=== PATIENT | female | born 1945 | race Caucasian/White ===

== ENCOUNTER 2024-02-29 14:10 | Inpatient (IN) | payer MEDICARE, OTHER, SELFPAY ==
[2024-02-29] VITALS (21 sets, daily range): BP systolic 97–153; BP diastolic 40–90; PULSE 62–89; RESP 11–47; TEMP 36.2–36.6; O2SAT 90–100; BMI 32.2
--- NOTE | ~2024-02-29 | CT_ITS ---
EXAMINATION: CT brain wo con DATE: 03/01/2024 10:33 INDICATION: Uneven pupil examination TECHNIQUE: Computed tomography (CT) of the head was performed without intravenous contrast. The dose- length product was 1059.33 mGy-cm. Automated exposure control and iterative reconstruction technique were employed. COMPARISON: None FINDINGS: Generalized atrophy. There are scattered moderate periventricular and subcortical white mat ter changes, most likely related to small vessel ischemic disease (microangiopathy). No ventriculomeg damion or midline shift. Basilar cisterns are patent. No acute infarction, hemorrhage, mass or mass effe ct. Paranasal sinuses and mastoids are pneumatized. No depressed skull fractures. IMPRESSION: 1. No acute intracranial abnormality. 2: Chronic age-related findings. Reviewed, dictated and finalized at location B.
--- NOTE | ~2024-02-29 | XR_ITS ---
EXAMINATION: XR barium swallow modified DATE: 03/04/2024 12:34 INDICATION: Dysphagia. TECHNIQUE: The patient was given barium-containing material of multiple consistencies to swallow by t ana speech pathologist while I performed fluoroscopy. Fluoroscopy exposure time was 1.3 minutes. The n umber of fluoroscopy images saved to the PACS was 1. Dose-area product was 1.208 Gy-cm^2. FINDINGS: There is reduced laryngeal elevation. There is laryngeal penetration with uncontrolled thin liquids t hat persists with head flexion. IMPRESSION: 1. Laryngeal penetration. 2. Please refer to the speech therapy report for recommendations. Reviewed, dictated and finalized at location A.
--- NOTE | ~2024-02-29 | CT_ITS ---
EXAMINATION: CTA chest PE protocol DATE: 02/29/2024 17:15 INDICATION: Tachycardia. Hypoxia. Chronic obstructive pulmonary disease. TECHNIQUE: Computed tomography angiography (CTA) of the chest was performed with 100 mL Omnipaque-350 intravenous contrast timed to evaluate the pulmonary arteries. Coronal maximum intensity projection 3D-reconstructions were created by the technologist. Automated exposure control and iterative reconst ruction technique were employed. The dose-length product was 813.02 mGy-cm. COMPARISON: None. FINDINGS: There is mild emphysema. There is diffuse septal thickening in the lungs. There is atelecta sis in the lungs with a dependent predominance. There are small pleural effusions. Calcified left tyrone g nodules and calcified left hilar and mediastinal lymph nodes are consistent with old granulomatous disease. Cardiomegaly is noted. There are coronary artery calcifications. No pericardial effusion. Th ere is no pulmonary embolus. There is mild mediastinal and bilateral hilar lymphadenopathy, likely re active. There is a patent arterial graft in right lateral chest wall. There is a chronic burst fractu re of T7 with focal kyphosis. IMPRESSION: 1. No pulmonary embolus. 2. Moderate pulmonary edema. 3. Small pleural effusions. 4. Mild mediastinal and hilar lymphadenopathy, likely reactive. Reviewed, dictated and finalized at location E.
--- NOTE | ~2024-02-29 | XR_ITS ---
EXAMINATION: XR chest 1V portable DATE: 03/05/2024 08:41 INDICATION: Respiratory failure. TECHNIQUE: A single frontal view of the chest was obtained. COMPARISON: Chest single view 03/03/2024, chest CT 02/29/2024 FINDINGS: There is a diffuse interstitial pattern in the lungs. There is a small right pleural effusi on. There are airspace opacities at the lung bases. Calcified pulmonary nodules and calcified hilar m ediastinal lymph nodes are consistent with old granulomatous disease. Cardiomegaly is noted. Surgical clips overlie right chest. IMPRESSION: 1. Mild pulmonary edema. 2. Small right pleural effusion. 3. Airspace opacities at the lung bases, likely atelectasis. 4. Cardiomegaly. Reviewed, dictated and finalized at location A.
--- NOTE | ~2024-02-29 | XR_ITS ---
EXAMINATION: XR chest 1V portable DATE: 03/03/2024 09:30 INDICATION: Chronic obstructive pulmonary disease. Fluid overload. TECHNIQUE: A single frontal view of the chest was obtained. COMPARISON: Chest CT 02/29/2024 FINDINGS: There is a diffuse interstitial pattern in the lungs, consistent with pulmonary edema. Ther e are small pleural effusions. There are airspace opacities at the lung bases, likely atelectasis. No pneumothorax. Cardiomegaly is noted. Calcified left hilar mediastinal lymph nodes are consistent wit h old granulomatous disease. There are surgical clips overlying the right shoulder. IMPRESSION: 1. Mild pulmonary edema. 2. Small pleural effusions. 3. Cardiomegaly. Reviewed, dictated and finalized at location A.
--- NOTE | 2024-02-29 14:56 | ECG_ITS ---
[facility] [address] Test Date: 2024-02-29 Pat Name: Dinorah Jacobo Department: Room: Gender: F Online Producer: : 1945 Requested By: Jarrod James Order Number: [id number] Julio MD: Ivonne Magallon M.D. Measurements Intervals [place] Rate: 66 P: 46 OH: 153 QRS: 27 QRSD: 82 T: 2 QT: 400 QTc: 422 Interpretive Statements SINUS RHYTHM NONSPECIFIC T-WAVE ABNORMALITY No previous ECG available for comparison Electronically Signed On 03-01-2024 12:04:37 CDT by Ivonne Magallon M.D.
[2024-02-29 15:29] LABS: Alveolar/Arterial O2 Gradient 335.8 mmHg; Base Excess ABG 15.4 mEq/l (+/-2.0); Carboxyhemoglobin 0.7 % THb (0-2.0); Fractional Inspired Oxygen 68 %; HCO3 ABG 44.6 mEq/l (22.0-26.0); Methemoglobin ABG 0.1 %THb (0-1.5); Oxygen Content ABG 12.6 %vol (16.0-22.0); PO2 ABG 52.7 mmHg (80.0-100.0); PO2 FiO2 Ratio Arterial Blood 0.78 %; Reduced Hemoglobin 12.5 %THb (0-5.0); Total Hemoglobin 10.3 g/dL (12.0-18.0); pH ABG 7.317 (7.350-7.450)
[2024-02-29 15:31] LABS: Device SIMPLE MASK; Modified Allen's Test Pass; Oxyhemoglobin 86.7 % THb (90.0-100.0); PCO2 ABG 89.2 mmHg (35.0-45.0); Site Drawn LEFT RADIAL
[2024-02-29] MEDS: ALBUTEROL SULFATE NEB 2.5 MG/3 ML INH INHALATION ×2 (15:36→19:52)
[2024-02-29] MEDS: methylPREDNISolone SOD SUCC 125 MG VIAL IV PUSH (15:37)
[2024-02-29 16:24] LABS: Basophils Absolute Auto 0.1 K/mm3 (0.0-0.1); Basophils Percent Auto 0.5 % (0.2-1.2); Eosinophils Absolute Auto 0.1 K/mm3 (0-0.3); Eosinophils Percent Auto 0.8 % (0-4.4); Hemoglobin 9.2 g/dL (12.0-15.0); Lymphocytes Absolute Auto 1.59 K/mm3 (0.9-3.2); Lymphocytes Percent Auto 16.5 % (18.3-44.2); Mean Corpuscular HGB Conc 27.9 g/dl (32-36); Mean Corpuscular Hemoglobin 30.3 pg (26-34); Mean Corpuscular Volume 108.6 fl (80-100); Mean Platelet Volume 10.6 fl (7.4-10.4); Monocytes Absolute Auto 0.5 K/mm3 (0.1-0.6); Monocytes Percent Auto 5.3 % (2.6-8.5); Neutrophils Absolute Auto 7.3 K/mm3 (1.3-6.7); Neutrophils Percent Auto 75.9 % (45.5-73.1); Platelet Count Result 222 k/mm3 (150-375); Red Blood Count 3.04 M/mm3 (4.2-5.4); Red Cell Distribution Width 14.1 % (11.5-14.5); White Blood Count 9.6 K/mm3 (4.5-10.0)
--- NOTE | 2024-02-29 16:26 | ED.GENADULT ---
HPI - General Adult General Chief complaint: Shortness of Breath/Dyspnea Stated complaint: SOB On Home O2 Time Seen by Provider: 02/29/24 15:03 History of Present Illness HPI narrative: 79-year-old female with history of COPD that is on 2 L of oxygen by nasal cannula at home and is still a smoker presents emergency department for evaluation of worsening shortness of breath and increased O2 requirement over the course of the last few months. 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 He states she has had increased oxygen requirement over the last few months but over the last few weeks and days it has increased even more. She states that she had been bumped up to 5-8 L and then over the last few days he did 10 L by face mask on 5 L by nasal cannula. Patient was still having oxygen saturations in the mid 80s so he called EMS. Related Data Allergies Allergy/AdvReac Type Severity Reaction Status Date / Time naproxen Allergy Unknown Verified 03/29/11 12:19 Sulfa (Sulfonamide Allergy Unknown Verified 01/16/12 12:02 Antibiotics) sulfanilamide Allergy Unknown Verified 03/29/11 12:11 Review of Systems Review of Systems: All systems reviewed & are unremarkable except as noted in HPI and below [facility] Family History Family History (Updated 01/04/17 @ 23:56 by DOCTOR UNKNOWN) Father Family history of coronary artery disease, Onset Age: 76 Patient's father is Sibling Family history of malignant neoplasm of breast in first degree relative, Onset Age: 52 Patient's sister is Social History Social History Second hand tobacco smoke exposure: No Alcohol intake: never Exam Narrative: APPEARANCE: Well appearing, no pain, no distress, well-nourished. HEAD: normocephalic, atraumatic. EYES: PERRLA/EOMI, conjunctivae clear. NOSE: Normal no drainage EARS:TMS clear with good light reflex. THROAT: Pharynx clear, no exudate. NECK: Supple. No adenopathy, no masses. RESPIRATORY: Decreased air movement bilaterally CARDIOVASCULAR: Regular rate and rhythm without murmurs rubs or gallops. ABDOMINAL: Soft, nontender, nondistended, normal bowel sounds MUSCULOSKELETAL: Moves all extremities. Strength/ROM intact, No edema, No calf tenderness. NEURO: Alert. Cranial nerves II through XII intact. Grossly intact Course Vital Signs Vital signs: Vital Signs Temperature 97.8 F 02/29/24 14:20 Pulse Rate 66 02/29/24 14:20 Respiratory Rate 16 02/29/24 14:20 Blood Pressure 153/63 H 02/29/24 14:20 Pulse Oximetry 100 02/29/24 14:20 Oxygen Delivery Room Air 02/29/24 14:20 Oxygen Flow Rate 15 02/29/24 14:20 Temperature 97.8 F 02/29/24 14:20 Pulse Rate 84 02/29/24 18:31 Respiratory Rate 20 02/29/24 18:31 Blood Pressure 127/54 L 02/29/24 18:31 Pulse Oximetry 97 02/29/24 18:31 Oxygen Delivery BiPAP 02/29/24 16:58 Oxygen Flow Rate 15 02/29/24 14:20 Medical Decision Making MDM Narrative Medical decision making narrative: 79-year-old female presenting emergency department for evaluation of worsening shortness of breath. Patient had a face mask at 15 L and was still saturating at 88%. Patient was transitioned to BiPAP and is tolerating this well. ABG taken just prior to placement of the face mask shows a pH of 7.37 but a pCO2 of 89.2 and a PO2 of 52.7. Patient was treated with Solu-Medrol and nebulized albuterol. Patient had a CT ordered to evaluate for pulmonary embolism and CTA showed no evidence of PE but did show some pulmonary edema. Patient with afebrile with no leukocytosis and hemoglobin of 9.2, patient does have an elevated BNP almost 4000. Patient was ordered a dose of IV Lasix. Case was discussed with the hospitalist and patient was accepted for admission to the IMU. Prior to going to the floor the patient's had to step out and patient became increasingly agitated. Patient was svetlana
[2024-02-29 16:40] LABS: Alanine Aminotransferase 15 U/L (6-35); Albumin Level 3.9 g/dL (3.5-5.1); Alkaline Phosphatase 143 U/L (38-126); Aspartate Amino Transferase 22 U/L (14-36); Bilirubin,Total 0.8 mg/dL (0.2-1.3); Blood Urea Nitrogen 12 mg/dL (7-17); Calcium 8.3 mg/dL (8.4-10.2); Carbon Dioxide > 40 mmol/L (22-30); Chloride 94 mmol/L (98-107); Estimated CRCL calculation 57 ml/min; Estimated Glomerular Filt Rate > 60; Glucose 118 mg/dL (65-110); Sodium 140 mmol/L (137-145)
[2024-02-29 18:08] LABS: NT Pro B Type Natriuretic Pept 3980 pg/mL (19.9-100)
[2024-02-29] MEDS: HALOPERIDOL LACTATE 5 MG/ML VIAL IM (19:03)
--- NOTE | 2024-02-29 19:05 | PC.NURSE ---
WOKE PT UP TO CHECK ORIENTATION STATUS. PT BECAME AGITATED, SWUNG KLEENEX BOX AT US. SAYING SHE WANTS TO LEAVE. MESSAGE LEFT WITH . AWAITING CALL BACK. DR GONZALES TO BEDSIDE. HALDOL 5MG GIVEN PER AMOL GONZALES. ARRIVED BACK TO BEDSIDE AND STATES THAT HE THINKS SHE HAS SUNDOWNERS . EVERY NIGHT SHE BECOMES CONFUSED AND RIPS OFF HER OXYGEN AND CLOTHING.
[2024-02-29 19:35] LABS: Alveolar/Arterial O2 Gradient 213.7 mmHg; Base Excess ABG 14.8 mEq/l (+/-2.0); Carboxyhemoglobin 0.9 % THb (0-2.0); Fractional Inspired Oxygen 50 %; HCO3 ABG 42.8 mEq/l (22.0-26.0); Methemoglobin ABG 0.1 %THb (0-1.5); Oxygen Content ABG 13.1 %vol (16.0-22.0); Oxyhemoglobin 89.5 % THb (90.0-100.0); PO2 ABG 57.5 mmHg (80.0-100.0); PO2 FiO2 Ratio Arterial Blood 1.15 %; Reduced Hemoglobin 9.5 %THb (0-5.0); Total Hemoglobin 10.4 g/dL (12.0-18.0)
[2024-02-29 19:37] LABS: PCO2 ABG 75.8 mmHg (35.0-45.0)
[2024-02-29 19:38] LABS: Device BIPAP; Expiratory Pressure 7 cmH2O; Inspiratory Pressure 14 cmH2O; Modified Allen's Test Pass; Oxygen Saturation ABG 87.6 % (95.0-100.0); Site Drawn RIGHT RADIAL
--- NOTE | 2024-02-29 19:41 | PM.IMHP ---
H&P: HPI History of Present Illness Date/Time: 02/29/24 20:00 Chief Complaint: Shortness of breath. Narrative: This is a 79-year-old female smoker with chronic respiratory failure on 2 L nasal cannula, chronic obstructive pulmonary disease, peripheral vascular disease, and hypertension who presented to the emergency department via EMS from home for evaluation of shortness of breath. She is somnolent on BiPAP after having received haloperidol due to agitation (pulling at the BiPAP mask and swinging at staff) and her provides the following history. She has never been seen at this facility before. 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 The last several days she has been on anywhere from 5 to 8 L but today her SpO2 remained in the 80s despite an additional 10 L via face mask. There are no reports of fever, cough, vomiting, or diarrhea. The patient denies headache, chest pain, pleuritic pain, nausea, and calf pain at this time. In the ED: ABG done immediately on arrival showed a pH of 7.317, pCO2 89.2, PO2 52.7, bicarb 44.6. She was started on BiPAP with improvement in her PO2 on repeat blood gas. The remainder of her vital signs have been stable. Labs were significant for WBC count of 9.6, hemoglobin 9.2, hematocrit 33.0%, MCV 108.6, platelet 222, proBNP 3980. Chest CTA was negative for pulmonary embolism but did show small pleural effusions and moderate pulmonary edema. She received 125 mg IV methylprednisolone, albuterol nebulizer, and 5 mg IM haloperidol for agitation and she is being admitted in this setting for further treatment. Review of Systems Review of Systems: She is somewhat the time my evaluation but does nod and shake her head appropriately when asked questions. She cannot really talk through the BiPAP mask however and review of systems is limited. She denies chest pain in feelings of shortness of breath at this time. She also denies headache, nausea, vomiting, and diarrhea. reports that she tends to sundown and suspect she has underlying but undiagnosed dementia. [facility] Past Medical History Medical History (Updated 02/29/24 @ 22:54 by Aidee Newberry PA-C) Chronic obstructive pulmonary disease Chronic pain syndrome Chronic respiratory failure with hypoxia, on home O2 therapy Hypertension Peripheral arterial disease Surgical History Surgical History (Updated 02/29/24 @ 22:40 by Aidee Newberry PA-C) History of syvvj-hnsrz-dudhmbl bypass History of cataract extraction Family History Family History Father Family history of coronary artery disease, Onset Age: 76 Patient's father is Sibling Family history of malignant neoplasm of breast in first degree relative, Onset Age: 52 Patient's sister is Social History Social History (Updated 02/29/24 @ 22:40 by Aidee Newberry PA-C) Social History: Surrogate medical decision maker: Erasmo Jacobo, spouse. Code status: Full code. Smoking packs per day: 1 Smoking cigarettes per day: 20.0 Years smoked: 60 Smoking pack-years: 60.00 Smoking status: Current every day smoker Second hand tobacco smoke exposure: No Alcohol intake: never Additional living arrangements comments: Lives with spouse in [place]. Spiritual care concerns: No Meds Home Medications and Allergies Home Medications Medication Instructions Recorded Confirmed Type atenolol 25 mg tablet 25 mg PO DAILY 02/29/24 02/29/24 History celecoxib 100 mg capsule (Celebrex) 100 mg PO BID PRN Pain 02/29/24 02/29/24 History clonidine HCl 0.2 mg tablet 0.2 mg PO DAILY 02/29/24 02/29/24 History clopidogrel 75 mg tablet 75 mg PO DAILY 02/29/24 02/29/24 History lisinopril 20 mg tablet 20 mg PO BID 02/29/24 02/29/24 Hi
--- NOTE | 2024-02-29 20:15 | PC.NURSE ---
This patient, Dinorah Jacobo, was admitted to IMU Room 200-01. Patient/family oriented to hospital policies and general routines including ID bracelet, bed and alarms, visiting hours, pain management, procedures, bathroom and other care routines, personal items, smoking policy, room service/diet, and visiting hours. Information on how to activate the Rapid Response Team has been discussed. Patient/Family are encouraged to report perceived risks to care and to ask questions if they do not understand what they are told or what they should do.
[2024-03-01] VITALS (39 sets, daily range): BP systolic 148–196; BP diastolic 50–92; PULSE 66–107; RESP 15–29; TEMP 36.6–37.1; O2SAT 88–99
[2024-03-01] MEDS: FUROSEMIDE INJ 40 MG/4 ML VIAL 20 MG IV PUSH (00:21)
[2024-03-01] MEDS: methylPREDNISolone SOD SUCC 125 MG VIAL 60 MG IV PUSH ×4 (00:21→18:22)
[2024-03-01] MEDS: IPRATROPIUM BR 0.02% INH SOLN 0.5 MG/2.5 ML VIAL INHALATION ×2 (02:22→07:29)
[2024-03-01] MEDS: ALBUTEROL SULFATE NEB 2.5 MG/3 ML INH INHALATION ×2 (02:22→07:28)
[2024-03-01 04:42] LABS: Hemoglobin 9.2 g/dL (12.0-15.0); Mean Corpuscular HGB Conc 27.9 g/dl (32-36); Mean Corpuscular Hemoglobin 29.7 pg (26-34); Mean Corpuscular Volume 106.5 fl (80-100); Mean Platelet Volume 11.2 fl (7.4-10.4); Platelet Count Result 211 k/mm3 (150-375)
[2024-03-01 05:05] LABS: Iron 68 ug/dL (37-170)
[2024-03-01 05:07] LABS: Blood Urea Nitrogen 14 mg/dL (7-17); Calcium 8.4 mg/dL (8.4-10.2); Carbon Dioxide > 40 mmol/L (22-30); Chloride 92 mmol/L (98-107); Estimated CRCL calculation 57 ml/min; Estimated Glomerular Filt Rate > 60; Glucose 205 mg/dL (65-110); Magnesium 1.6 mg/dL (1.6-2.3); Potassium 3.7 mmol/L (3.4-5.0); Sodium 140 mmol/L (137-145)
[2024-03-01 05:15] LABS: Percent Iron Saturation 24 % (20-50)
[2024-03-01 05:37] LABS: Thyroid Stimulating Hormone Reflex 0.351 uIU/mL (0.465-4.68)
[2024-03-01] MEDS: WATER FOR IRRIGATION, STERILE 1,000 ML BOTTLE 1000 ML (06:35)
[2024-03-01 06:46] LABS: Free T4 Free Thyroxine Reflex 1.05 ng/dL (0.78-2.19)
[2024-03-01 07:42] LABS: Alveolar/Arterial O2 Gradient 305.6 mmHg; Device NON-INVASIVE VENT; Fractional Inspired Oxygen 60 %; HCO3 ABG 39.5 mEq/l (22.0-26.0); Modified Allen's Test Pass; Oxygen Content ABG 13.1 %vol (16.0-22.0); Oxygen Saturation ABG 92.4 % (95.0-100.0); Oxyhemoglobin 92.5 % THb (90.0-100.0); PCO2 ABG 55.3 mmHg (35.0-45.0); PO2 ABG 61.4 mmHg (80.0-100.0); PO2 FiO2 Ratio Arterial Blood 1.02 %; Site Drawn LEFT RADIAL; pH ABG 7.472 (7.350-7.450)
[2024-03-01 07:43] LABS: Non-Invasive Expiratory Pressure 7 CMH2O; Non-Invasive Inspiratory Pressure 14 CMH2O; Non-Invasive Vent Rate 12 /MIN
[2024-03-01 08:11] LABS: Folic Acid 7.1 ng/mL (2.76->20)
--- NOTE | 2024-03-01 08:21 | P.PNIM_ITS ---
Progress Note: A&P Assessment and Plan (1) Acute respiratory failure with hypoxia and hypercapnia: Code(s): J96.01 - Acute respiratory failure with hypoxia; J96.02 - Acute respiratory failure with hypercapnia Status: Acute Assessment and Plan: Patient required BiPAP on admission. Currently on high-flow nasal cannula 60 L at 75%. She carries a history of COPD on maintenance oxygen 3-4 L. * Pulmonary consulted and provided the following recs * DuoNebs Q 4 scheduled * IV Solu-Medrol 40 mg Q 6 * Start azithromycin 500 mg x 5 days * Wean oxygen as tolerated to baseline 3-4 L nasal cannula to maintain oxygen saturation greater than 88% * COVID and RSV panel ordered and pending * BiPAP changed to AVAPS mode with a tidal volume of 500 mils, minimal inspiratory pressure of 6, maximum pressure of 25, AVAPS Epap 05, AVAPS rate of 20, AVAPS I time 1.0, AVAPS rise 3 FiO2 50%. Respiratory therapy is aware has been counseled to titrate tidal volume, I time, and rise as needed for patient comfort. * Repeat ABG in the morning prior to taking patient off of AVAPS * Pulmonology will formally see the patient, (2) Pulmonary edema: Code(s): J81.1 - Chronic pulmonary edema Status: Acute Assessment and Plan: reports last echo [address] Cardona with [facility] was normal. * Echocardiogram ordered now * On telemetry, sinus tach to sinus rhythm * Restart home medications of atenolol, clonidine, lisinopril, and on IV Lasix. * Patient is normally on Lasix 20 mg twice a day. Will diurese her with IV Lasix 40 mg twice a day * I: 240 ml O: 500, net - 260 ml * BNP on admission was 3900. Will repeat a BNP in the morning. * Direct I&O * Daily weight (3) Chronic obstructive pulmonary disease: Code(s): J44.9 - Chronic obstructive pulmonary disease, unspecified Status: Acute Assessment and Plan: see 1 (4) Hypertension: Code(s): I10 - Essential (primary) hypertension Status: Acute Assessment and Plan: Blood pressure from 104 to 150s systolic over 40s to 50s * Home blood pressure medications have been resumed (5) Macrocytic anemia: Code(s): D53.9 - Nutritional anemia, unspecified Status: Acute Assessment and Plan: Hemoglobin 9.2 on admission. states she normally is running normal in terms of her H&H. * Overt bleeding * Patient is on Plavix 75 mg daily * Iron panel was normal, ferritin normal * Vitamin B12 and folate normal (6) Peripheral arterial disease: Code(s): I73.9 - Peripheral vascular disease, unspecified Status: Acute Assessment and Plan: Patient has a history of stents * Bilateral lower extremities without edema * Enoxaparin for DVT prophylaxis (7) Chronic pain syndrome: Code(s): G89.4 - Chronic pain syndrome Status: Acute Assessment and Plan: Patient has a history of a compression fracture * Patient has been on morphine 30 mg every 8 hours and Lyrica 100 mg b.i.d. since 2006 for a compression fracture * She is having a lot of pain this morning. I have restarted her morphine 30 mg at b.i.d.. I am hesitant to restart her morphine at full dose given her presenting symptoms. Her case was discussed with the pharmacist and we have decided that should control we could add on short-acting morphine for breakthrough pain. Plan Feeding: Heart healthy diet Analgesia: Morphine, Tylenol Thromboembolic prophylaxis: Lovenox Ulcer prophylaxis: Glycemic control: Monitor blood sugars given steroids, a.c. HS Accu-
--- NOTE | 2024-03-01 08:21 | PM.IMPN ---
Progress Note: A&P Assessment and Plan (1) Acute respiratory failure with hypoxia and hypercapnia: Code(s): J96.01 - Acute respiratory failure with hypoxia; J96.02 - Acute respiratory failure with hypercapnia Status: Acute Assessment and Plan: Patient required BiPAP on admission. Currently on high-flow nasal cannula 60 L at 75%. She carries a history of COPD on maintenance oxygen 3-4 L. Pulmonary consulted and provided the following recs DuoNebs Q 4 scheduled IV Solu-Medrol 40 mg Q 6 Start azithromycin 500 mg x 5 days Wean oxygen as tolerated to baseline 3-4 L nasal cannula to maintain oxygen saturation greater than 88% COVID and RSV panel ordered and pending BiPAP changed to AVAPS mode with a tidal volume of 500 mils, minimal inspiratory pressure of 6, maximum pressure of 25, AVAPS Epap 05, AVAPS rate of 20, AVAPS I time 1.0, AVAPS rise 3 FiO2 50%. Respiratory therapy is aware has been counseled to titrate tidal volume, I time, and rise as needed for patient comfort. Repeat ABG in the morning prior to taking patient off of AVAPS Pulmonology will formally see the patient, (2) Pulmonary edema: Code(s): J81.1 - Chronic pulmonary edema Status: Acute Assessment and Plan: reports last echo [address] Cardona with [facility] was normal. Echocardiogram ordered now On telemetry, sinus tach to sinus rhythm Restart home medications of atenolol, clonidine, lisinopril, and on IV Lasix. Patient is normally on Lasix 20 mg twice a day. Will diurese her with IV Lasix 40 mg twice a day I: 240 ml O: 500, net - 260 ml BNP on admission was 3900. Will repeat a BNP in the morning. Direct I&O Daily weight (3) Chronic obstructive pulmonary disease: Code(s): J44.9 - Chronic obstructive pulmonary disease, unspecified Status: Acute Assessment and Plan: see 1 (4) Hypertension: Code(s): I10 - Essential (primary) hypertension Status: Acute Assessment and Plan: Blood pressure from 104 to 150s systolic over 40s to 50s Home blood pressure medications have been resumed (5) Macrocytic anemia: Code(s): D53.9 - Nutritional anemia, unspecified Status: Acute Assessment and Plan: Hemoglobin 9.2 on admission. states she normally is running normal in terms of her H&H. Overt bleeding Patient is on Plavix 75 mg daily Iron panel was normal, ferritin normal Vitamin B12 and folate normal (6) Peripheral arterial disease: Code(s): I73.9 - Peripheral vascular disease, unspecified Status: Acute Assessment and Plan: Patient has a history of stents Bilateral lower extremities without edema Enoxaparin for DVT prophylaxis (7) Chronic pain syndrome: Code(s): G89.4 - Chronic pain syndrome Status: Acute Assessment and Plan: Patient has a history of a compression fracture Patient has been on morphine 30 mg every 8 hours and Lyrica 100 mg b.i.d. since 2006 for a compression fracture She is having a lot of pain this morning. I have restarted her morphine 30 mg at b.i.d.. I am hesitant to restart her morphine at full dose given her presenting symptoms. Her case was discussed with the pharmacist and we have decided that should control we could add on short-acting morphine for breakthrough pain. Plan Feeding: Heart healthy diet Analgesia: Morphine, Tylenol Thromboembolic prophylaxis: Lovenox Ulcer prophylaxis: Glycemic control: Monitor blood sugars given steroids, a.c. HS Accu-Cheks, low-dose sliding scale, A1c ordered Lines: PIV Antibiotics: Azithromycin for 5 days Disposition: Once medically improved patient will likely discharge back home with possible BiPAP versus AVAPS Subjective Date/time seen: 03/01/24 08:21 Interval history: This is a 79-year-old female smoker with chronic respiratory failure on 2 L nasal cannula, chronic obstructive pulmonary disease, perip
[2024-03-01] MEDS: CELECOXIB 100 MG CAPSULE PO (08:38)
[2024-03-01] MEDS: PARoxetine 20 MG TABLET 40 MG PO (08:39)
[2024-03-01] MEDS: CLOPIDOGREL BISULFATE 75 MG TABLET PO (08:39)
[2024-03-01] MEDS: cloNIDine HCL 0.2 MG TABLET PO (08:39)
[2024-03-01] MEDS: lisinopriL 20 MG TABLET PO ×2 (08:39→18:22)
[2024-03-01] MEDS: atenoloL 25 MG TABLET PO (08:39)
[2024-03-01 10:11] LABS: Total Triiodothyronine (T3) 0.89 NG/ML (0.97-1.69)
[2024-03-01 11:08] LABS: Hemoglobin A1C 5.1 % (<5.7)
[2024-03-01] MEDS: PREGABALIN (*CRX) 50 MG CAPSULE 100 MG PO ×2 (11:10→20:56)
[2024-03-01] MEDS: MORPHINE SULFATE (*CRX) 30 MG TABCR PO ×2 (11:10→20:55)
[2024-03-01] MEDS: guaiFENesin 12 HR 600 MG TABCR 1200 MG PO ×2 (11:10→20:55)
[2024-03-01] MEDS: ENOXAPARIN 40 MG/0.4 ML SYRINGE SUB-Q (11:11)
[2024-03-01] MEDS: FUROSEMIDE INJ 40 MG/4 ML VIAL IV PUSH ×2 (11:11→18:22)
[2024-03-01 11:43] LABS: Influenza A QL RT-PCR Negative (Negative); Influenza B QL RT-PCR Negative (Negative); RSV RNA, RT-PCR Negative (Negative); SARS-CoV-2 RNA PCR Negative (Negative)
--- NOTE | 2024-03-01 11:53 | PCSTNOTE ---
Please refer to the Bedside Swallow Evaluation in the EMR. Please note, silent aspiration cannot be ruled out at bedside.
[2024-03-01 12:13] LABS: Glucose Point of Care 177 mg/dl (65-105)
[2024-03-01] MEDS: IPRATROPIUM 0.5 MG/ALBUTEROL SULFATE 2.5 MG AMPUL.NEB 3 ML INHALATION ×4 (12:14→23:35)
[2024-03-01] MEDS: AZITHROMYCIN 500 MG/NS 250 ML 500 MG/250 ML BAG 250 MG IVPB (13:02)
[2024-03-01 15:49] LABS: Glucose Point of Care 152 mg/dl (65-105)
--- NOTE | 2024-03-01 17:27 | PCRCNOTE ---
Giving pt. break off Bipap. Placed pt. on Airvo 60lpm and 60% Fio2. Pt. holding SpO2 at 89%.
[2024-03-01 20:29] LABS: Glucose Point of Care 195 mg/dl (65-105)
[2024-03-01] MEDS: hydrALAZINE HCL 20 MG/ML VIAL 10 MG IV PUSH (20:56)
[2024-03-02] VITALS (25 sets, daily range): BP systolic 137–193; BP diastolic 52–73; PULSE 59–106; RESP 18–24; TEMP 36.4–37; O2SAT 88–94
--- NOTE | 2024-03-02 | ECHO_ITS ---
Patient Info Name: Dinorah Jacobo Age: 79 years : 1945 Gender: Female Ht: 62 in Wt: 176 lbs BSA: 1.90 m2 HR: 77 bpm BP: 193 / 73 mmHg Heart Rhythm: Sinus Rhythm Technical Quality: Fair Exam Date: 03/02/2024 9:23 AM Exam Location: Echo Lab Patient Status: Inpatient Admit Date: 03/01/2024 Staff Ordering Physician: Aidee Newberry PA-C Special Shopper: Ronnie Chung RDCS Attending Provider: Jamila Rodriguez APRN Referring Physician: Coni BEAR; Exam Type: CA echo doppler color flow Study Info Indications J81.0 - Acute pulmonary edema J90 - Pleural effusion, not elsewhere classified I27.0 - Primary pulmonary hypertension Complete two-dimensional, color flow and Doppler transthoracic echocardiogram is performed. Summary 1. Complete two-dimensional, color flow and Doppler transthoracic echocardiogram is performed. 2. Normal left ventricular size with hyperdynamic systolic function suggesting a state of increased on inotropic stimulation. 3. Grade 1 diastolic noncompliance. 4. No valvular dysfunction. Left Ventricle Left ventricular chamber dimension is normal. Left ventricular systolic function is hyperdynamic, estimated at >70%. The left ventricular diastolic function is grade I diastolic dysfunction. Right Ventricle Right ventricular chamber dimension is normal. Left Atria Left atrial chamber dimension is normal. Right Atria Right atrial chamber dimension is normal. Aortic Valve The aortic valve is normal. Pulmonic Valve The pulmonic valve is not well visualized. Mitral Valve The mitral valve has normal leaflets. Tricuspid Valve The tricuspid valve leaflets are normal. Pericardium/Pleural The pericardium appears normal. Aorta The aortic root size at the sinus of Valsalva is normal. Left Ventricular Outflow Tract Name Value Normal LVOT 2D LVOT Diameter 2.0 cm LVOT Doppler LVOT Peak Gradient 9 mmHg LVOT Mean Gradient 3 mmHg LVOT VTI 29 cm LVOT VTI/AV VTI Ratio 1.2 LVOT Stroke Volume 89 ml LVOT CO 6.2 l/min LVOT CI 3.2 l/min/m2 Pulmonic Valve Name Value Normal RVOT Doppler RVOT Peak Gradient 6 mmHg PV Doppler PV Peak Gradient 5 mmHg Mitral Valve Name Value Normal MV Doppler MV Decel [place] 275 cm/s2 MV PHT 76 ms MV Area (PHT) 2.9 cm2 4.0
[2024-03-02] MEDS: methylPREDNISolone SOD SUCC 125 MG VIAL 60 MG IV PUSH (00:09)
[2024-03-02 04:35] LABS: Basophils Percent Auto 0.1 % (0.2-1.2); Hematocrit 32.6 % (37.0-47.0); Hemoglobin 9.5 g/dL (12.0-15.0); Immature Granulocyte Absolute 0.13 K/mm3 (0.00-0.031); Immature Granulocyte Percent A 1.2 % (0-0.5); Lymphocytes Absolute Auto 0.56 K/mm3 (0.9-3.2); Mean Corpuscular HGB Conc 29.1 g/dl (32-36); Mean Corpuscular Hemoglobin 29.7 pg (26-34); Mean Corpuscular Volume 101.9 fl (80-100); Mean Platelet Volume 10.9 fl (7.4-10.4); Monocytes Absolute Auto 0.3 K/mm3 (0.1-0.6); Monocytes Percent Auto 2.5 % (2.6-8.5); Neutrophils Absolute Auto 10.1 K/mm3 (1.3-6.7); Neutrophils Percent Auto 91.2 % (45.5-73.1); Platelet Count Result 243 k/mm3 (150-375); Red Cell Distribution Width 14.2 % (11.5-14.5); White Blood Count 11.1 K/mm3 (4.5-10.0)
[2024-03-02 05:07] LABS: Alanine Aminotransferase 14 U/L (6-35); Albumin Level 3.8 g/dL (3.5-5.1); Alkaline Phosphatase 122 U/L (38-126); Aspartate Amino Transferase 25 U/L (14-36); Bilirubin,Total 0.6 mg/dL (0.2-1.3); Blood Urea Nitrogen 25 mg/dL (7-17); Calcium 8.4 mg/dL (8.4-10.2); Carbon Dioxide > 40 mmol/L (22-30); Chloride 88 mmol/L (98-107); Estimated CRCL calculation 50 ml/min; Estimated Glomerular Filt Rate > 60; Glucose 189 mg/dL (65-110); Magnesium 1.6 mg/dL (1.6-2.3); Potassium 2.9 mmol/L (3.4-5.0); Sodium 137 mmol/L (137-145)
[2024-03-02 05:11] LABS: NT Pro B Type Natriuretic Pept 1650 pg/mL (19.9-100)
[2024-03-02 05:27] LABS: Platelet Estimate Adequate (Adequate)
[2024-03-02 05:28] LABS: Anisocytosis 1+; Hypochromasia 1+; Schistocytes None Seen
[2024-03-02 05:57] LABS: Alveolar/Arterial O2 Gradient 303.7 mmHg; Base Excess ABG 16.1 mEq/l (+/-2.0); Fractional Inspired Oxygen 60 %; HCO3 ABG 41.6 mEq/l (22.0-26.0); Oxygen Content ABG 14.9 %vol (16.0-22.0); Oxygen Saturation ABG 93.7 % (95.0-100.0); Oxyhemoglobin 92.9 % THb (90.0-100.0); PCO2 ABG 54.4 mmHg (35.0-45.0); PO2 ABG 64.3 mmHg (80.0-100.0); PO2 FiO2 Ratio Arterial Blood 1.07 %; Total Hemoglobin 11.4 g/dL (12.0-18.0)
[2024-03-02 06:00] LABS: Site Drawn LEFT BRACHIAL; pH ABG 7.501 (7.350-7.450)
[2024-03-02 06:01] LABS: Device NON-INVASIVE VENT
[2024-03-02 06:02] LABS: Non-Invasive Expiratory Pressure 5 CMH2O; Non-Invasive Inspiratory Pressure 25 CMH2O; Non-Invasive Vent Rate 20 /MIN
--- NOTE | 2024-03-02 07:41 | P.PNIM_ITS ---
Progress Note: A&P Assessment and Plan (1) Acute respiratory failure with hypoxia and hypercapnia: Code(s): J96.01 - Acute respiratory failure with hypoxia; J96.02 - Acute respiratory failure with hypercapnia Status: Acute Assessment and Plan: Patient required BiPAP on admission. Currently on high-flow nasal cannula 60 L at 75%. She carries a history of COPD on maintenance oxygen 3-4 L. * Pulmonary consulted and provided the following recs * DuoNebs Q 4 scheduled * IV Solu-Medrol 40 mg Q 6 * Start azithromycin 500 mg x 5 days * Wean oxygen as tolerated to baseline 3-4 L nasal cannula to maintain oxygen saturation greater than 88% * COVID and RSV panel ordered and pending * BiPAP changed to AVAPS mode with a tidal volume of 500 mils, minimal inspiratory pressure of 6, maximum pressure of 25, AVAPS Epap 05, AVAPS rate of 20, AVAPS I time 1.0, AVAPS rise 3 FiO2 50%. Respiratory therapy is aware has been counseled to titrate tidal volume, I time, and rise as needed for patient comfort. * Repeat ABG in the morning prior to taking patient off of AVAPS * Pulmonology will formally see the patient 03/02: * Patient tolerated AVAPS overnight. She is agreeable to having this arranged for home use but [facility] * ABG this morning on above settings shows metabolic alkalosis ph 7.50, pCO2 54.4, pO2 64.3, HCO3 41.6 * Hi Flow currently 35L and fio2 82%, sating 90% * Upper respiratory panel was negative (2) Pulmonary edema: Code(s): J81.1 - Chronic pulmonary edema Status: Acute Assessment and Plan: reports last echo [address] Cardona with [facility] was normal. * Echocardiogram ordered now * On telemetry, sinus tach to sinus rhythm * Restart home medications of atenolol, clonidine, lisinopril, and on IV Lasix. * Patient is normally on Lasix 20 mg twice a day. Will diurese her with IV Lasix 40 mg twice a day * I: 240 ml O: 500, net - 260 ml * BNP on admission was 3900. Will repeat a BNP in the morning. * Direct I&O * Daily weight 03/02: * 80.5 Kg today. Admission weight 81.3 kg * 2.2 L of urine output in the last 24 hours, she is net negative 1950ml for the last 24 hours. * BNP 1650 this morning * Receiving IV Lasix this morning. Plan to transition back to PO tomorrow. * K+ 2.9. Patient on tele. Replete with 80 mEq of PO K+ (3) Chronic obstructive pulmonary disease: Code(s): J44.9 - Chronic obstructive pulmonary disease, unspecified Status: Acute Assessment and Plan: see 1 (4) Hypertension: Code(s): I10 - Essential (primary) hypertension Status: Acute Assessment and Plan: Blood pressure from 104 to 150s systolic over 40s to 50s * Home blood pressure medications have been resumed (5) Macrocytic anemia: Code(s): D53.9 - Nutritional anemia, unspecified Status: Acute Assessment and Plan: Hemoglobin 9.2 on admission. states she normally is running normal in terms of her H&H. * Overt bleeding * Patient is on Plavix 75 mg daily * Iron panel was normal, ferritin normal * Vitamin B12 and folate normal (6) Peripheral arterial disease: Code(s): I73.9 - Peripheral vascular disease, unspecified Status: Acute Assessment and Plan: Patient has a history of stents * Bilateral lower extremities without edema * Enoxaparin for DVT prophylaxis (7) Chronic pain syndrome: Code(s): G89.4 - Chronic pain syndrome Status: Acute Assessment and Plan: Patient has a history of a
--- NOTE | 2024-03-02 07:41 | PM.IMPN ---
Progress Note: A&P Assessment and Plan (1) Acute respiratory failure with hypoxia and hypercapnia: Code(s): J96.01 - Acute respiratory failure with hypoxia; J96.02 - Acute respiratory failure with hypercapnia Status: Acute Assessment and Plan: Patient required BiPAP on admission. Currently on high-flow nasal cannula 60 L at 75%. She carries a history of COPD on maintenance oxygen 3-4 L. Pulmonary consulted and provided the following recs DuoNebs Q 4 scheduled IV Solu-Medrol 40 mg Q 6 Start azithromycin 500 mg x 5 days Wean oxygen as tolerated to baseline 3-4 L nasal cannula to maintain oxygen saturation greater than 88% COVID and RSV panel ordered and pending BiPAP changed to AVAPS mode with a tidal volume of 500 mils, minimal inspiratory pressure of 6, maximum pressure of 25, AVAPS Epap 05, AVAPS rate of 20, AVAPS I time 1.0, AVAPS rise 3 FiO2 50%. Respiratory therapy is aware has been counseled to titrate tidal volume, I time, and rise as needed for patient comfort. Repeat ABG in the morning prior to taking patient off of AVAPS Pulmonology will formally see the patient 03/02: Patient tolerated AVAPS overnight. She is agreeable to having this arranged for home use but her [facility]. ABG this morning on above settings shows metabolic alkalosis ph 7.50, pCO2 54.4, pO2 64.3, HCO3 41.6 Hi Flow currently 35L and fio2 82%, sating 90% Upper respiratory panel was negative (2) Pulmonary edema: Code(s): J81.1 - Chronic pulmonary edema Status: Acute Assessment and Plan: reports last echo [address] Cardona with [facility] was normal. Echocardiogram ordered now On telemetry, sinus tach to sinus rhythm Restart home medications of atenolol, clonidine, lisinopril, and on IV Lasix. Patient is normally on Lasix 20 mg twice a day. Will diurese her with IV Lasix 40 mg twice a day I: 240 ml O: 500, net - 260 ml BNP on admission was 3900. Will repeat a BNP in the morning. Direct I&O Daily weight 03/02: 80.5 Kg today. Admission weight 81.3 kg 2.2 L of urine output in the last 24 hours, she is net negative 1950ml for the last 24 hours. BNP 1650 this morning Receiving IV Lasix this morning. Plan to transition back to PO tomorrow. K+ 2.9. Patient on tele. Replete with 80 mEq of PO K+ (3) Chronic obstructive pulmonary disease: Code(s): J44.9 - Chronic obstructive pulmonary disease, unspecified Status: Acute Assessment and Plan: see 1 (4) Hypertension: Code(s): I10 - Essential (primary) hypertension Status: Acute Assessment and Plan: Blood pressure from 104 to 150s systolic over 40s to 50s Home blood pressure medications have been resumed (5) Macrocytic anemia: Code(s): D53.9 - Nutritional anemia, unspecified Status: Acute Assessment and Plan: Hemoglobin 9.2 on admission. states she normally is running normal in terms of her H&H. Overt bleeding Patient is on Plavix 75 mg daily Iron panel was normal, ferritin normal Vitamin B12 and folate normal (6) Peripheral arterial disease: Code(s): I73.9 - Peripheral vascular disease, unspecified Status: Acute Assessment and Plan: Patient has a history of stents Bilateral lower extremities without edema Enoxaparin for DVT prophylaxis (7) Chronic pain syndrome: Code(s): G89.4 - Chronic pain syndrome Status: Acute Assessment and Plan: Patient has a history of a compression fracture Patient has been on morphine 30 mg every 8 hours and Lyrica 100 mg b.i.d. since 2006 for a compression fracture She is having a lot of pain this morning. I have restarted her morphine 30 mg at b.i.d.. I am hesitant to restart her morphine at full dose given her presenting symptoms. Her case was discussed with the pharmacist and we have decided that should control we could add on short-acting morph
[2024-03-02 07:47] LABS: Glucose Point of Care 223 mg/dl (65-105)
[2024-03-02] MEDS: IPRATROPIUM 0.5 MG/ALBUTEROL SULFATE 2.5 MG AMPUL.NEB 3 ML INHALATION ×4 (07:49→20:59)
[2024-03-02] MEDS: methylPREDNISolone SOD SUCC 40 MG VIAL IV PUSH ×2 (08:13→12:25)
[2024-03-02] MEDS: FUROSEMIDE INJ 40 MG/4 ML VIAL IV PUSH ×2 (08:14→17:04)
[2024-03-02] MEDS: lisinopriL 20 MG TABLET PO ×2 (08:14→17:04)
[2024-03-02] MEDS: ENOXAPARIN 40 MG/0.4 ML SYRINGE SUB-Q (08:14)
[2024-03-02] MEDS: guaiFENesin 12 HR 600 MG TABCR 1200 MG PO ×2 (08:14→20:05)
[2024-03-02] MEDS: PREGABALIN (*CRX) 50 MG CAPSULE 100 MG PO ×2 (08:14→20:05)
[2024-03-02] MEDS: CLOPIDOGREL BISULFATE 75 MG TABLET PO (08:14)
[2024-03-02] MEDS: POTASSIUM CHLORIDE 20 MEQ ER TABLET 40 MEQ PO ×2 (08:14→12:25)
[2024-03-02] MEDS: cloNIDine HCL 0.2 MG TABLET PO (08:15)
[2024-03-02] MEDS: INSULIN ASPART (*BKC) 100 UNITS/ML SUB-Q ×2 (08:15→17:05)
[2024-03-02] MEDS: atenoloL 25 MG TABLET PO (08:15)
[2024-03-02] MEDS: PARoxetine 20 MG TABLET 40 MG PO (08:15)
[2024-03-02] MEDS: MORPHINE SULFATE (*CRX) 30 MG TABCR PO ×2 (08:29→20:05)
[2024-03-02 11:30] LABS: Glucose Point of Care 154 mg/dl (65-105)
[2024-03-02] MEDS: AZITHROMYCIN 500 MG/NS 250 ML 500 MG/250 ML BAG 250 MG IVPB (12:25)
--- NOTE | 2024-03-02 12:26 | PM.CNPUL ---
Assessment and Plan Assessment and plan (1) Chronic obstructive pulmonary disease: Code(s): J44.9 - Chronic obstructive pulmonary disease, unspecified Status: Acute Assessment and Plan: Patient with a 60 pack year tobacco use, hypoxemic respiratory failure on 4 L nasal cannula for many years, told me she had PFTs many many years ago I do not have those results. She is limited in activity due to chronic back pain and can only walk a few steps to transfer out of bed. Currently the patient is admitted with acute on chronic hypercarbic respiratory failure from her COPD. Admission blood gas on BiPAP was 7.32/ 89, 53 and 4 hours later on BiPAP 50% was 7.37/76/58. Her serum bicarbonate was greater than 40 on admission. The patient has chronic hypercarbic respiratory failure from her COPD and would benefit from noninvasive ventilation to prevent further exacerbations and hospitalizations. The patient was initially placed on BiPAP but she said this was uncomfortable of a for her and could not tolerate the pressures. She was switched to a noninvasive ventilator with the AVAPS mode and tolerated rate of 20, tidal volume 500, EPAP 5, minimal inspiratory pressure 6, maximal inspiratory pressure 25 and 60% FiO2. Plan: I will continue to treat for COPD exacerbation. Patient has no wheezing and I will change her to prednisone 40 mg p.o. q.day. I will continue DuoNebs q.4 hours. I will continue azithromycin for tracheobronchitis, day 2. I will continue guaifenesin 1200 mg p.o. b.i.d.. Goal saturation 90-94%. Patient is currently on high-flow nasal cannula 35 L and 82%. Will wean as tolerated. Blood gas on the above-mentioned AVAPS settings 7.50/59/64. These settings provide adequate ventilation. I have initiated home noninvasive ventilation with a patient financial coordinator. Currently the patient gets her home oxygen to the [facility] [place] [employer]. will check overnight oximetry once her oxygenation has improved. Discussed with Roseann Rodriguez, will follow with you. (2) Pulmonary edema: Code(s): J81.1 - Chronic pulmonary edema Status: Acute Assessment and Plan: Patient with an echo 6 months ago per the that was reported as normal. Currently she presents with lymphedema, she takes p.r.n. Lasix and was taken 40 every other day for the last week because the thought she was more swollen, BNP of 3980, CT scan of the chest with moderate pulmonary edema and small pleural effusions. 03/02/24: She is net diuresis 2.2 L since admission. Her weight was 80.9 with admission weight of 81.3. Plan: Agree with as aggressive diuresis as tolerated by her cardiac and renal systems per hospitalist team. Currently she is on Lasix 40 IV b.i.d.. Repeat BNP has improved from 4648-1195. Echocardiogram has been ordered. History of Present Illness History of Present Illness Consult date: 03/02/24 Chief complaint: Hypercapnia, pulmonary edena Narrative: 03/02/2024: This is a new pulmonary consult for COPD exacerbation with chronic hypercarbic respiratory failure. 79-year-old with a history of tobacco use, COPD, hypoxemic respiratory failure on 3-4 L nasal cannula baseline, hypertension, peripheral vascular disease and chronic back pain With compression fractures and she can only ambulate a few steps to transfer to a wheelchair because of chronic back pain. Over the last 6 weeks the patient has had worsening shortness of breath and worsening hypoxemia. Her is a retired respiratory therapist and generally she wears 4 L nasal cannula. Over the last few weeks she has gone to 5 L and then requiring 5 L plus a 10 L oxygen mask on top of that to maintain adequate saturations. The patient presented to the emergency room on 02/29/2024 with shortness of breath, lethargy with blood pressure 153/63, heart rate 66, respirations 16 and saturations 100% on 15 L. She had decreased breath
--- NOTE | 2024-03-02 12:51 | PCSTNOTE ---
Therapist spoke with Jamila, Hospitalist, concerning discontinuing the Modified Barium Swallow order as patient is on specialized oxygen which is not portable. They may have patient start diet of Pureed and Regular Liquids. ST will continue to monitor response to oral diet. Radiology aware that MBS is cancelled at this time. May be attempted in the future as patient progresses.
[2024-03-02] MEDS: CELECOXIB 100 MG CAPSULE PO ×2 (15:23→15:24)
[2024-03-02 16:34] LABS: Glucose Point of Care 203 mg/dl (65-105)
[2024-03-02 20:43] LABS: Glucose Point of Care 131 mg/dl (65-105)
[2024-03-03] VITALS (29 sets, daily range): BP systolic 142–172; BP diastolic 54–69; PULSE 52–70; RESP 12–26; TEMP 35.8–36.8; O2SAT 89–98
[2024-03-03] MEDS: IPRATROPIUM 0.5 MG/ALBUTEROL SULFATE 2.5 MG AMPUL.NEB 3 ML INHALATION ×6 (03:32→20:07)
[2024-03-03 05:07] LABS: Basophils Percent Auto 0.1 % (0.2-1.2); Hematocrit 32.5 % (37.0-47.0); Hemoglobin 9.7 g/dL (12.0-15.0); Immature Granulocyte Absolute 0.14 K/mm3 (0.00-0.031); Immature Granulocyte Percent A 1.1 % (0-0.5); Lymphocytes Absolute Auto 1.41 K/mm3 (0.9-3.2); Lymphocytes Percent Auto 11.5 % (18.3-44.2); Mean Corpuscular HGB Conc 29.8 g/dl (32-36); Mean Corpuscular Hemoglobin 30.3 pg (26-34); Mean Corpuscular Volume 101.6 fl (80-100); Mean Platelet Volume 11.3 fl (7.4-10.4); Monocytes Absolute Auto 0.8 K/mm3 (0.1-0.6); Monocytes Percent Auto 6.5 % (2.6-8.5); Neutrophils Absolute Auto 9.9 K/mm3 (1.3-6.7); Neutrophils Percent Auto 80.8 % (45.5-73.1); Nucleated Red Blood Cells Perc 0.2 % (0.0-0.2); Platelet Count Result 252 k/mm3 (150-375); White Blood Count 12.3 K/mm3 (4.5-10.0)
[2024-03-03 05:22] LABS: Alanine Aminotransferase 12 U/L (6-35); Albumin Level 3.6 g/dL (3.5-5.1); Alkaline Phosphatase 90 U/L (38-126); Aspartate Amino Transferase 25 U/L (14-36); Bilirubin,Total 0.6 mg/dL (0.2-1.3); Blood Urea Nitrogen 46 mg/dL (7-17); Calcium 8.2 mg/dL (8.4-10.2); Carbon Dioxide > 40 mmol/L (22-30); Chloride 90 mmol/L (98-107); Estimated CRCL calculation 40 ml/min; Estimated Glomerular Filt Rate 54; Glucose 144 mg/dL (65-110); Magnesium 1.8 mg/dL (1.6-2.3); Potassium 3.7 mmol/L (3.4-5.0); Sodium 135 mmol/L (137-145)
[2024-03-03 08:01] LABS: Glucose Point of Care 125 mg/dl (65-105)
[2024-03-03] MEDS: atenoloL 25 MG TABLET PO (09:31)
[2024-03-03] MEDS: PARoxetine 20 MG TABLET 40 MG PO (09:31)
[2024-03-03] MEDS: FUROSEMIDE 20 MG TABLET PO ×2 (09:31→17:25)
[2024-03-03] MEDS: cloNIDine HCL 0.2 MG TABLET PO ×2 (09:31→09:33)
[2024-03-03] MEDS: guaiFENesin 12 HR 600 MG TABCR 1200 MG PO ×2 (09:32→22:01)
[2024-03-03] MEDS: CLOPIDOGREL BISULFATE 75 MG TABLET PO (09:32)
[2024-03-03] MEDS: predniSONE 20 MG TABLET 40 MG PO (09:32)
[2024-03-03] MEDS: lisinopriL 20 MG TABLET PO ×2 (09:33→17:25)
[2024-03-03] MEDS: MORPHINE SULFATE (*CRX) 30 MG TABCR PO ×2 (09:33→22:01)
[2024-03-03] MEDS: PREGABALIN (*CRX) 50 MG CAPSULE 100 MG PO ×2 (09:33→22:01)
--- NOTE | 2024-03-03 09:41 | P.PNIM_ITS ---
Progress Note: A&P Assessment and Plan (1) Acute respiratory failure with hypoxia and hypercapnia: Code(s): J96.01 - Acute respiratory failure with hypoxia; J96.02 - Acute respiratory failure with hypercapnia Status: Acute Assessment and Plan: Patient required BiPAP on admission. Currently on high-flow nasal cannula 60 L at 75%. She carries a history of COPD on maintenance oxygen 3-4 L. * Pulmonary consulted and provided the following recs * DuoNebs Q 4 scheduled * IV Solu-Medrol 40 mg Q 6 * Start azithromycin 500 mg x 5 days * Wean oxygen as tolerated to baseline 3-4 L nasal cannula to maintain oxygen saturation greater than 88% * COVID and RSV panel ordered and pending * BiPAP changed to AVAPS mode with a tidal volume of 500 mils, minimal inspiratory pressure of 6, maximum pressure of 25, AVAPS Epap 05, AVAPS rate of 20, AVAPS I time 1.0, AVAPS rise 3 FiO2 50%. Respiratory therapy is aware has been counseled to titrate tidal volume, I time, and rise as needed for patient comfort. * Repeat ABG in the morning prior to taking patient off of AVAPS * Pulmonology will formally see the patient 03/02: * Patient tolerated AVAPS overnight. She is agreeable to having this arranged for home use but her insurance is through the [place]. * ABG this morning on above settings shows metabolic alkalosis ph 7.50, pCO2 54.4, pO2 64.3, HCO3 41.6 * Hi Flow currently 35L and fio2 82%, sating 90% * Upper respiratory panel was negative 03/03: * continue titration of oxygen. This morning she is 94% on 50%, 50 L * Now on oral prednisone 40 mg daily * Azithromycin IV continues (2) Pulmonary edema: Code(s): J81.1 - Chronic pulmonary edema Status: Acute Assessment and Plan: reports last echo [address] Cardona with [facility] was normal. * Echocardiogram ordered now * On telemetry, sinus tach to sinus rhythm * Restart home medications of atenolol, clonidine, lisinopril, and on IV Lasix. * Patient is normally on Lasix 20 mg twice a day. Will diurese her with IV Lasix 40 mg twice a day * I: 240 ml O: 500, net - 260 ml * BNP on admission was 3900. Will repeat a BNP in the morning. * Direct I&O * Daily weight 03/02: * 80.5 Kg today. Admission weight 81.3 kg * 2.2 L of urine output in the last 24 hours, she is net negative 1950ml for the last 24 hours. * BNP 1650 this morning * Receiving IV Lasix this morning. Plan to transition back to PO tomorrow. * K+ 2.9. Patient on tele. Replete with 80 mEq of PO K+ 03/03: * Wt. 77.6 kg * 2.1 L UOP yesterday * net -150 ml * Lasix was switched back to PO today (3) Chronic obstructive pulmonary disease: Code(s): J44.9 - Chronic obstructive pulmonary disease, unspecified Status: Acute Assessment and Plan: see 1 (4) Hypertension: Code(s): I10 - Essential (primary) hypertension Status: Acute Assessment and Plan: Blood pressure from 104 to 150s systolic over 40s to 50s * Home blood pressure medications have been resumed (5) Macrocytic anemia: Code(s): D53.9 - Nutritional anemia, unspecified Status: Acute Assessment and Plan: Hemoglobin 9.2 on admission. states she normally is running normal in terms of her H&H. * Overt bleeding * Patient is on Plavix 75 mg daily * Iron panel was normal, ferritin normal * Vitamin B12 and folate normal (6) Peripheral arterial disease: Code(s): I73.9 - Peripheral vascular disease, unspecified Status: Acute Assessment and Plan:
--- NOTE | 2024-03-03 09:41 | PM.IMPN ---
Progress Note: A&P Assessment and Plan (1) Acute respiratory failure with hypoxia and hypercapnia: Code(s): J96.01 - Acute respiratory failure with hypoxia; J96.02 - Acute respiratory failure with hypercapnia Status: Acute Assessment and Plan: Patient required BiPAP on admission. Currently on high-flow nasal cannula 60 L at 75%. She carries a history of COPD on maintenance oxygen 3-4 L. Pulmonary consulted and provided the following recs DuoNebs Q 4 scheduled IV Solu-Medrol 40 mg Q 6 Start azithromycin 500 mg x 5 days Wean oxygen as tolerated to baseline 3-4 L nasal cannula to maintain oxygen saturation greater than 88% COVID and RSV panel ordered and pending BiPAP changed to AVAPS mode with a tidal volume of 500 mils, minimal inspiratory pressure of 6, maximum pressure of 25, AVAPS Epap 05, AVAPS rate of 20, AVAPS I time 1.0, AVAPS rise 3 FiO2 50%. Respiratory therapy is aware has been counseled to titrate tidal volume, I time, and rise as needed for patient comfort. Repeat ABG in the morning prior to taking patient off of AVAPS Pulmonology will formally see the patient 03/02: Patient tolerated AVAPS overnight. She is agreeable to having this arranged for home use but [facility]. ABG this morning on above settings shows metabolic alkalosis ph 7.50, pCO2 54.4, pO2 64.3, HCO3 41.6 Hi Flow currently 35L and fio2 82%, sating 90% Upper respiratory panel was negative 03/03: continue titration of oxygen. This morning she is 94% on 50%, 50 L Now on oral prednisone 40 mg daily Azithromycin IV continues (2) Pulmonary edema: Code(s): J81.1 - Chronic pulmonary edema Status: Acute Assessment and Plan: reports last echo [address] Cardona with [facility] was normal. Echocardiogram ordered now On telemetry, sinus tach to sinus rhythm Restart home medications of atenolol, clonidine, lisinopril, and on IV Lasix. Patient is normally on Lasix 20 mg twice a day. Will diurese her with IV Lasix 40 mg twice a day I: 240 ml O: 500, net - 260 ml BNP on admission was 3900. Will repeat a BNP in the morning. Direct I&O Daily weight 03/02: 80.5 Kg today. Admission weight 81.3 kg 2.2 L of urine output in the last 24 hours, she is net negative 1950ml for the last 24 hours. BNP 1650 this morning Receiving IV Lasix this morning. Plan to transition back to PO tomorrow. K+ 2.9. Patient on tele. Replete with 80 mEq of PO K+ /: Wt. 77.6 kg 2.1 L UOP yesterday net -150 ml Lasix was switched back to PO today (3) Chronic obstructive pulmonary disease: Code(s): J44.9 - Chronic obstructive pulmonary disease, unspecified Status: Acute Assessment and Plan: see 1 (4) Hypertension: Code(s): I10 - Essential (primary) hypertension Status: Acute Assessment and Plan: Blood pressure from 104 to 150s systolic over 40s to 50s Home blood pressure medications have been resumed (5) Macrocytic anemia: Code(s): D53.9 - Nutritional anemia, unspecified Status: Acute Assessment and Plan: Hemoglobin 9.2 on admission. states she normally is running normal in terms of her H&H. Overt bleeding Patient is on Plavix 75 mg daily Iron panel was normal, ferritin normal Vitamin B12 and folate normal (6) Peripheral arterial disease: Code(s): I73.9 - Peripheral vascular disease, unspecified Status: Acute Assessment and Plan: Patient has a history of stents Bilateral lower extremities without edema Enoxaparin for DVT prophylaxis (7) Chronic pain syndrome: Code(s): G89.4 - Chronic pain syndrome Status: Acute Assessment and Plan: Patient has a history of a compression fracture Patient has been on morphine 30 mg every 8 hours and Lyrica 100 mg b.i.d. since 2006 for a compression fracture She is having a lot of pain this morning. I hav
[2024-03-03] MEDS: ENOXAPARIN 40 MG/0.4 ML SYRINGE SUB-Q (09:49)
[2024-03-03 12:04] LABS: Glucose Point of Care 150 mg/dl (65-105)
--- NOTE | 2024-03-03 15:53 | PM.PNPUL ---
Progress Note: A&P Assessment and Plan (1) Chronic obstructive pulmonary disease: Code(s): J44.9 - Chronic obstructive pulmonary disease, unspecified Status: Acute Assessment and Plan: Patient with a 60 pack year tobacco use, hypoxemic respiratory failure on 4 L nasal cannula for many years, told me she had PFTs many many years ago I do not have those results. She is limited in activity due to chronic back pain and can only walk a few steps to transfer out of bed. Currently the patient is admitted with acute on chronic hypercarbic respiratory failure from her COPD. Admission blood gas on BiPAP was 7.32/ 89, 53 and 4 hours later on BiPAP 50% was 7.37/76/58. Her serum bicarbonate was greater than 40 on admission. The patient has chronic hypercarbic respiratory failure from her COPD and would benefit from noninvasive ventilation to prevent further exacerbations and hospitalizations. The patient was initially placed on BiPAP but she said this was uncomfortable of a for her and could not tolerate the pressures. She was switched to a noninvasive ventilator with the AVAPS mode and tolerated rate of 20, tidal volume 500, EPAP 5, minimal inspiratory pressure 6, maximal inspiratory pressure 25 and 60% FiO2. 03/02/24: Plan: I will continue to treat for COPD exacerbation. Patient has no wheezing and I will change her to prednisone 40 mg p.o. q.day. I will continue DuoNebs q.4 hours. I will continue azithromycin for tracheobronchitis, day 2. I will continue guaifenesin 1200 mg p.o. b.i.d.. Goal saturation 90-94%. Patient is currently on high-flow nasal cannula 35 L and 82%. Will wean as tolerated. Blood gas on the above-mentioned AVAPS settings 7.50/59/64. These settings provide adequate ventilation. I have initiated home noninvasive ventilation with a house coordinator. Currently the patient gets her home oxygen to the [employer]. will check overnight oximetry once her oxygenation has improved. 03/03/2024: Overall the patient states that she is breathing better. She has not been out of bed. She is afebrile. White blood cell count 12.3, creatinine 1.0, weight is 77.6, total diuresis since admission is -2.7 L. the patient wore the hospital noninvasive ventilator with the AVAPS mode and 60% oxygen overnight. When I entered the room she was on high-flow nasal cannula 50 L and 65% FiO2 with saturations 96%. I decreased her to 50% FiO2 and 50 L and her saturations were 93%. Plan: continue to treat for COPD exacerbation with prednisone 40 mg a day, day 4. Continue DuoNebs q.4 hours. Continue azithromycin day 3 or 5. Patient is on guaifenesin 1200 mg p.o. b.i.d.. Goal saturation 90-94%. search coordinator contacted the [facility] regarding noninvasive ventilation and per their protocol they give the patient a machine but have no in house continuity. We will check with via [employer] to see if they can support her system and set up a noninvasive ventilator at home with good follow-up. Will follow with you. (2) Pulmonary edema: Code(s): J81.1 - Chronic pulmonary edema Status: Acute Assessment and Plan: Patient with an echo 6 months ago per the that was reported as normal. Currently she presents with lymphedema, she takes p.r.n. Lasix and was taken 40 every other day for the last week because the thought she was more swollen, BNP of 3980, CT scan of the chest with moderate pulmonary edema and small pleural effusions. 03/02/24: She is net diuresis 2.2 L since admission. Her weight was 80.9 with admission weight of 81.3. Plan: Agree with as aggressive diuresis as tolerated by her cardiac and renal systems per hospitalist team. Currently she is on Lasix 40 IV b.i.d.. Repeat BNP has improved from 5236-2952. Echocardiogram has been ordered. 03/03/2024: creatinine 1.0, weight is 77.6, total diuresis since admission is -2.7 L
[2024-03-03 16:53] LABS: Glucose Point of Care 177 mg/dl (65-105)
[2024-03-03] MEDS: AZITHROMYCIN 500 MG/NS 250 ML 500 MG/250 ML BAG 250 MG IVPB (17:30)
[2024-03-03 20:44] LABS: Glucose Point of Care 172 mg/dl (65-105)
[2024-03-04] VITALS (33 sets, daily range): BP systolic 110–150; BP diastolic 38–80; PULSE 54–88; RESP 14–24; TEMP 36.1–36.6; O2SAT 87–100
[2024-03-04] MEDS: IPRATROPIUM 0.5 MG/ALBUTEROL SULFATE 2.5 MG AMPUL.NEB 3 ML INHALATION ×3 (00:01→08:06)
[2024-03-04 04:04] LABS: Basophils Percent Auto 0.1 % (0.2-1.2); Hematocrit 30.7 % (37.0-47.0); Immature Granulocyte Absolute 0.16 K/mm3 (0.00-0.031); Immature Granulocyte Percent A 1.3 % (0-0.5); Lymphocytes Absolute Auto 2.17 K/mm3 (0.9-3.2); Lymphocytes Percent Auto 18.2 % (18.3-44.2); Mean Corpuscular HGB Conc 29.3 g/dl (32-36); Mean Corpuscular Volume 102.3 fl (80-100); Monocytes Absolute Auto 0.9 K/mm3 (0.1-0.6); Monocytes Percent Auto 7.7 % (2.6-8.5); Neutrophils Absolute Auto 8.7 K/mm3 (1.3-6.7); Neutrophils Percent Auto 72.7 % (45.5-73.1); Platelet Count Result 220 k/mm3 (150-375); Red Cell Distribution Width 14.7 % (11.5-14.5); White Blood Count 11.9 K/mm3 (4.5-10.0)
[2024-03-04 04:19] LABS: Alanine Aminotransferase 13 U/L (6-35); Albumin Level 3.5 g/dL (3.5-5.1); Alkaline Phosphatase 95 U/L (38-126); Aspartate Amino Transferase 23 U/L (14-36); Bilirubin,Total 0.5 mg/dL (0.2-1.3); Blood Urea Nitrogen 39 mg/dL (7-17); Calcium 8.1 mg/dL (8.4-10.2); Carbon Dioxide > 40 mmol/L (22-30); Chloride 92 mmol/L (98-107); Estimated CRCL calculation 40 ml/min; Estimated Glomerular Filt Rate 54; Glucose 117 mg/dL (65-110); Magnesium 1.9 mg/dL (1.6-2.3); Potassium 3.7 mmol/L (3.4-5.0); Sodium 135 mmol/L (137-145)
[2024-03-04] MEDS: ACETAMINOPHEN 325 MG TABLET 650 MG PO (06:18)
[2024-03-04 07:42] LABS: Glucose Point of Care 188 mg/dl (65-105)
[2024-03-04] MEDS: predniSONE 20 MG TABLET 40 MG PO (08:55)
[2024-03-04] MEDS: AZITHROMYCIN 250 MG TABLET 500 MG PO (08:57)
[2024-03-04] MEDS: CLOPIDOGREL BISULFATE 75 MG TABLET PO (08:57)
[2024-03-04] MEDS: PARoxetine 20 MG TABLET 40 MG PO (08:57)
[2024-03-04] MEDS: guaiFENesin 12 HR 600 MG TABCR 1200 MG PO ×2 (08:57→20:10)
[2024-03-04] MEDS: atenoloL 25 MG TABLET PO (08:57)
[2024-03-04] MEDS: FUROSEMIDE 20 MG TABLET PO (08:57)
[2024-03-04] MEDS: PREGABALIN (*CRX) 50 MG CAPSULE 100 MG PO ×2 (08:57→20:10)
[2024-03-04] MEDS: lisinopriL 20 MG TABLET PO ×2 (08:58→17:08)
[2024-03-04] MEDS: MORPHINE SULFATE (*CRX) 30 MG TABCR PO ×2 (08:58→18:03)
[2024-03-04] MEDS: ENOXAPARIN 40 MG/0.4 ML SYRINGE SUB-Q (09:05)
--- NOTE | 2024-03-04 10:13 | PM.PNPUL ---
Progress Note: A&P Assessment and Plan (1) Chronic obstructive pulmonary disease: Code(s): J44.9 - Chronic obstructive pulmonary disease, unspecified Status: Acute Assessment and Plan: Patient with a 60 pack year tobacco use, hypoxemic respiratory failure on 4 L nasal cannula for many years, told me she had PFTs many many years ago I do not have those results. She is limited in activity due to chronic back pain and can only walk a few steps to transfer out of bed. Currently the patient is admitted with acute on chronic hypercarbic respiratory failure from her COPD. Admission blood gas on BiPAP was 7.32/ 89, 53 and 4 hours later on BiPAP 50% was 7.37/76/58. Her serum bicarbonate was greater than 40 on admission. The patient has chronic hypercarbic respiratory failure from her COPD and would benefit from noninvasive ventilation to prevent further exacerbations and hospitalizations. The patient was initially placed on BiPAP but she said this was uncomfortable of a for her and could not tolerate the pressures. She was switched to a noninvasive ventilator with the AVAPS mode and tolerated rate of 20, tidal volume 500, EPAP 5, minimal inspiratory pressure 6, maximal inspiratory pressure 25 and 60% FiO2. 03/02/24: Plan: I will continue to treat for COPD exacerbation. Patient has no wheezing and I will change her to prednisone 40 mg p.o. q.day. I will continue DuoNebs q.4 hours. I will continue azithromycin for tracheobronchitis, day 2. I will continue guaifenesin 1200 mg p.o. b.i.d.. Goal saturation 90-94%. Patient is currently on high-flow nasal cannula 35 L and 82%. Will wean as tolerated. Blood gas on the above-mentioned AVAPS settings 7.50/59/64. These settings provide adequate ventilation. I have initiated home noninvasive ventilation with a student development coordinator. Currently the patient gets her home oxygen to the [email or web address]. will check overnight oximetry once her oxygenation has improved. 03/03/2024: Overall the patient states that she is breathing better. She has not been out of bed. She is afebrile. White blood cell count 12.3, creatinine 1.0, weight is 77.6, total diuresis since admission is -2.7 L. the patient wore the hospital noninvasive ventilator with the AVAPS mode and 60% oxygen overnight. When I entered the room she was on high-flow nasal cannula 50 L and 65% FiO2 with saturations 96%. I decreased her to 50% FiO2 and 50 L and her saturations were 93%. Plan: continue to treat for COPD exacerbation with prednisone 40 mg a day, day 4. Continue DuoNebs q.4 hours. Continue azithromycin day 3 or 5. Patient is on guaifenesin 1200 mg p.o. b.i.d.. Goal saturation 90-94%. social work program coordinator contacted the [place] [facility] system regarding noninvasive ventilation and per their protocol they give the patient a machine but have no in house continuity. We will check with via [employer] to see if they can support her system and set up a noninvasive ventilator at home with good follow-up. 03/04/2024: Patient stating she has a rough day today. She has increased cough and phlegm production with no wheezing. Currently she is on 8 L cannula with saturations 95% and I decreased her to 6 L nasal cannula. White blood cell count 11.9, creatinine 1.0. Plan: continue to treat for COPD exacerbation with prednisone 40 mg a day, day 5 and will DC today. I will change her DuoNebs q.4 hours to Anoro Ellipta 62.5-25 at 1 puff q.day. Continue azithromycin day 4 or 5. Patient is on guaifenesin 1200 mg p.o. b.i.d.. Goal saturation 90-94% and currently on 6 L nasal cannula. Will follow with you. (2) Pulmonary edema: Code(s): J81.1 - Chronic pulmonary edema Status: Acute Assessment and Plan: Patient with an echo 6 months ago per the that was reported as normal. Currently she presents with lymphedema, she takes p.r.n. Lasix and was taken 40 ever
[2024-03-04 11:50] LABS: Glucose Point of Care 97 mg/dl (65-105)
[2024-03-04] MEDS: UMECLIDINIUM/VILANTEROL 62.5-25 MCG ELLIPTA 1 PUFF INHALATION (11:58)
--- NOTE | 2024-03-04 13:00 | P.PNIM_ITS ---
Progress Note: A&P Assessment and Plan (1) Acute respiratory failure with hypoxia and hypercapnia: Code(s): J96.01 - Acute respiratory failure with hypoxia; J96.02 - Acute respiratory failure with hypercapnia Status: Acute Assessment and Plan: Patient required BiPAP on admission. Currently on high-flow nasal cannula 60 L at 75%. She carries a history of COPD on maintenance oxygen 3-4 L. * Pulmonary consulted and provided the following recs * DuoNebs Q 4 scheduled * IV Solu-Medrol 40 mg Q 6 * Start azithromycin 500 mg x 5 days * Wean oxygen as tolerated to baseline 3-4 L nasal cannula to maintain oxygen saturation greater than 88% * COVID and RSV panel ordered and pending * BiPAP changed to AVAPS mode with a tidal volume of 500 mils, minimal inspiratory pressure of 6, maximum pressure of 25, AVAPS Epap 05, AVAPS rate of 20, AVAPS I time 1.0, AVAPS rise 3 FiO2 50%. Respiratory therapy is aware has been counseled to titrate tidal volume, I time, and rise as needed for patient comfort. * Repeat ABG in the morning prior to taking patient off of AVAPS * Pulmonology will formally see the patient 03/02: * Patient tolerated AVAPS overnight. She is agreeable to having this arranged for home use but her insurance [facility]. * ABG this morning on above settings shows metabolic alkalosis ph 7.50, pCO2 54.4, pO2 64.3, HCO3 41.6 * Hi Flow currently 35L and fio2 82%, sating 90% * Upper respiratory panel was negative 03/03: * continue titration of oxygen. This morning she is 94% on 50%, 50 L * Now on oral prednisone 40 mg daily * Azithromycin IV continues 03/04: This morning patient was 8 liters/minute titrated down to 6 L minute in tolerated attempt down to 4 liters/minute was not successful and is saturating 92% on 5 liters/minute. AVAPS DME still pending (2) Pulmonary edema: Code(s): J81.1 - Chronic pulmonary edema Status: Acute Assessment and Plan: reports last echo [address] Cardona with [facility] was normal. * Echocardiogram ordered now * On telemetry, sinus tach to sinus rhythm * Restart home medications of atenolol, clonidine, lisinopril, and on IV Lasix. * Patient is normally on Lasix 20 mg twice a day. Will diurese her with IV Lasix 40 mg twice a day * I: 240 ml O: 500, net - 260 ml * BNP on admission was 3900. Will repeat a BNP in the morning. * Direct I&O * Daily weight 03/02: * 80.5 Kg today. Admission weight 81.3 kg * 2.2 L of urine output in the last 24 hours, she is net negative 1950ml for the last 24 hours. * BNP 1650 this morning * Receiving IV Lasix this morning. Plan to transition back to PO tomorrow. * K+ 2.9. Patient on tele. Replete with 80 mEq of PO K+ 03/03: * Wt. 77.6 kg * 2.1 L UOP yesterday * net -150 ml * Lasix was switched back to PO today 03/04: Dr. Lambert concerned patient is not getting enough diuresis oral Lasix 20 mg b.i.d. Will give 1 time dose of IV Lasix and increased to 40 mg b.i.d. (3) Chronic obstructive pulmonary disease: Code(s): J44.9 - Chronic obstructive pulmonary disease, unspecified Status: Acute Assessment and Plan: see 1 (4) Hypertension: Code(s): I10 - Essential (primary) hypertension Status: Acute Assessment and Plan: Blood pressure from 104 to 150s systolic over 40s to 50s * Home blood pressure medications have been resumed (5) Macrocytic anemia: Code(s): D53.9 - Nutritional anemia, unspecified Status: Acute Assessment and Plan: Hemoglobin
--- NOTE | 2024-03-04 13:00 | PM.IMPN ---
Progress Note: A&P Assessment and Plan (1) Acute respiratory failure with hypoxia and hypercapnia: Code(s): J96.01 - Acute respiratory failure with hypoxia; J96.02 - Acute respiratory failure with hypercapnia Status: Acute Assessment and Plan: Patient required BiPAP on admission. Currently on high-flow nasal cannula 60 L at 75%. She carries a history of COPD on maintenance oxygen 3-4 L. Pulmonary consulted and provided the following recs DuoNebs Q 4 scheduled IV Solu-Medrol 40 mg Q 6 Start azithromycin 500 mg x 5 days Wean oxygen as tolerated to baseline 3-4 L nasal cannula to maintain oxygen saturation greater than 88% COVID and RSV panel ordered and pending BiPAP changed to AVAPS mode with a tidal volume of 500 mils, minimal inspiratory pressure of 6, maximum pressure of 25, AVAPS Epap 05, AVAPS rate of 20, AVAPS I time 1.0, AVAPS rise 3 FiO2 50%. Respiratory therapy is aware has been counseled to titrate tidal volume, I time, and rise as needed for patient comfort. Repeat ABG in the morning prior to taking patient off of AVAPS Pulmonology will formally see the patient 03/02: Patient tolerated AVAPS overnight. She is agreeable to having this arranged for home use but her insurance is [facility]. ABG this morning on above settings shows metabolic alkalosis ph 7.50, pCO2 54.4, pO2 64.3, HCO3 41.6 Hi Flow currently 35L and fio2 82%, sating 90% Upper respiratory panel was negative 03/03: continue titration of oxygen. This morning she is 94% on 50%, 50 L Now on oral prednisone 40 mg daily Azithromycin IV continues 03/04: This morning patient was 8 liters/minute titrated down to 6 L minute in tolerated attempt down to 4 liters/minute was not successful and is saturating 92% on 5 liters/minute. AVAPS DME still pending (2) Pulmonary edema: Code(s): J81.1 - Chronic pulmonary edema Status: Acute Assessment and Plan: reports last echo [address] Cardona with [facility] was normal. Echocardiogram ordered now On telemetry, sinus tach to sinus rhythm Restart home medications of atenolol, clonidine, lisinopril, and on IV Lasix. Patient is normally on Lasix 20 mg twice a day. Will diurese her with IV Lasix 40 mg twice a day I: 240 ml O: 500, net - 260 ml BNP on admission was 3900. Will repeat a BNP in the morning. Direct I&O Daily weight 03/02: 80.5 Kg today. Admission weight 81.3 kg 2.2 L of urine output in the last 24 hours, she is net negative 1950ml for the last 24 hours. BNP 1650 this morning Receiving IV Lasix this morning. Plan to transition back to PO tomorrow. K+ 2.9. Patient on tele. Replete with 80 mEq of PO K+ 03/03: Wt. 77.6 kg 2.1 L UOP yesterday net -150 ml Lasix was switched back to PO today 03/04: Dr. Lambert concerned patient is not getting enough diuresis oral Lasix 20 mg b.i.d. Will give 1 time dose of IV Lasix and increased to 40 mg b.i.d. (3) Chronic obstructive pulmonary disease: Code(s): J44.9 - Chronic obstructive pulmonary disease, unspecified Status: Acute Assessment and Plan: see 1 (4) Hypertension: Code(s): I10 - Essential (primary) hypertension Status: Acute Assessment and Plan: Blood pressure from 104 to 150s systolic over 40s to 50s Home blood pressure medications have been resumed (5) Macrocytic anemia: Code(s): D53.9 - Nutritional anemia, unspecified Status: Acute Assessment and Plan: Hemoglobin 9.2 on admission. states she normally is running normal in terms of her H&H. No overt bleeding Patient is on Plavix 75 mg daily Iron panel was normal, ferritin normal Vitamin B12 and folate normal 03/04: Hemoglobin 9.0 on morning labs (6) Peripheral arterial disease: Code(s): I73.9 - Peripheral vascular disease, unspecified Status: Acute Assessment and Plan: Patient has a history of stents Bilat
--- NOTE | 2024-03-04 13:04 | PCSTNOTE ---
Please refer to the Modified Barium Swallow Evaluation in the EMR.
[2024-03-04] MEDS: CYANOCOBALAMIN 1,000 MCG TABLET 1000 MCG PO (14:15)
[2024-03-04] MEDS: FUROSEMIDE INJ 40 MG/4 ML VIAL IV PUSH (14:33)
[2024-03-04] MEDS: FUROSEMIDE 40 MG TABLET PO (17:08)
[2024-03-04] MEDS: POTASSIUM CHLORIDE 20 MEQ PACKET (FOR LIQUID) 40 MEQ PO (17:08)
[2024-03-05] VITALS (24 sets, daily range): BP systolic 104–200; BP diastolic 46–96; PULSE 47–76; RESP 20–27; TEMP 35.7–36.6; O2SAT 93–100
[2024-03-05] MEDS: MORPHINE SULFATE (*CRX) 30 MG TABCR PO ×3 (02:11→19:51)
--- NOTE | 2024-03-05 03:52 | PCRCNOTE ---
Patient placed on bipap AVAPS mode at 0010 along with overnight oximetry study. Patient off bipap at 0100 stating she cannot tolerate the pressure and the fact that the bipap is requiring her to take 20 breaths per minute. RT and RN encouraged patient to try the bipap again for a few hours. At 0215 patient requests mask be removed so she can sleep, again stating she is unable to tolerate the pressure. Overnight oximetry study also removed at 0215. Patient placed back on 5L high flow nasal cannula satting 93%
[2024-03-05 04:23] LABS: Basophils Percent Auto 0.2 % (0.2-1.2); Eosinophils Percent Auto 0.2 % (0-4.4); Hematocrit 32.1 % (37.0-47.0); Hemoglobin 9.6 g/dL (12.0-15.0); Immature Granulocyte Absolute 0.18 K/mm3 (0.00-0.031); Immature Granulocyte Percent A 1.6 % (0-0.5); Lymphocytes Absolute Auto 2.35 K/mm3 (0.9-3.2); Lymphocytes Percent Auto 20.6 % (18.3-44.2); Mean Corpuscular HGB Conc 29.9 g/dl (32-36); Mean Corpuscular Hemoglobin 30.5 pg (26-34); Mean Corpuscular Volume 101.9 fl (80-100); Mean Platelet Volume 10.4 fl (7.4-10.4); Monocytes Absolute Auto 0.6 K/mm3 (0.1-0.6); Monocytes Percent Auto 5.3 % (2.6-8.5); Neutrophils Absolute Auto 8.2 K/mm3 (1.3-6.7); Neutrophils Percent Auto 72.1 % (45.5-73.1); Nucleated Red Blood Cells Perc 0.2 % (0.0-0.2); Platelet Count Result 219 k/mm3 (150-375); Red Blood Count 3.15 M/mm3 (4.2-5.4); Red Cell Distribution Width 15.1 % (11.5-14.5); White Blood Count 11.4 K/mm3 (4.5-10.0)
[2024-03-05 04:43] LABS: Alanine Aminotransferase 16 U/L (6-35); Albumin Level 3.8 g/dL (3.5-5.1); Alkaline Phosphatase 104 U/L (38-126); Aspartate Amino Transferase 22 U/L (14-36); Bilirubin,Total 0.4 mg/dL (0.2-1.3); Blood Urea Nitrogen 36 mg/dL (7-17); Carbon Dioxide > 40 mmol/L (22-30); Chloride 91 mmol/L (98-107); Estimated CRCL calculation 37 ml/min; Estimated Glomerular Filt Rate 48; Glucose 100 mg/dL (65-110); Magnesium 1.9 mg/dL (1.6-2.3); Potassium 3.2 mmol/L (3.4-5.0); Sodium 135 mmol/L (137-145)
[2024-03-05 04:48] LABS: Hypochromasia 1+; Platelet Estimate Adequate (Adequate); Schistocytes None Seen; Stomatocytes 1+
[2024-03-05] MEDS: UMECLIDINIUM/VILANTEROL 62.5-25 MCG ELLIPTA 1 PUFF INHALATION (07:49)
[2024-03-05] MEDS: guaiFENesin 12 HR 600 MG TABCR 1200 MG PO ×2 (09:04→20:36)
[2024-03-05] MEDS: lisinopriL 20 MG TABLET PO ×2 (09:04→18:07)
[2024-03-05] MEDS: atenoloL 25 MG TABLET PO (09:04)
[2024-03-05] MEDS: PARoxetine 20 MG TABLET 40 MG PO (09:04)
[2024-03-05] MEDS: FUROSEMIDE 40 MG TABLET PO ×2 (09:05→18:07)
[2024-03-05] MEDS: PREGABALIN (*CRX) 50 MG CAPSULE 100 MG PO ×2 (09:05→20:36)
[2024-03-05] MEDS: AZITHROMYCIN 250 MG TABLET 500 MG PO (09:05)
[2024-03-05] MEDS: CYANOCOBALAMIN 1,000 MCG TABLET 1000 MCG PO (09:06)
[2024-03-05] MEDS: cloNIDine HCL 0.2 MG TABLET PO (09:06)
[2024-03-05] MEDS: CLOPIDOGREL BISULFATE 75 MG TABLET PO (09:10)
[2024-03-05] MEDS: ENOXAPARIN 40 MG/0.4 ML SYRINGE SUB-Q (09:10)
--- NOTE | 2024-03-05 10:06 | PM.PNPUL ---
Progress Note: A&P Assessment and Plan (1) Chronic obstructive pulmonary disease: Code(s): J44.9 - Chronic obstructive pulmonary disease, unspecified Status: Acute Assessment and Plan: Patient with a 60 pack year tobacco use, hypoxemic respiratory failure on 4 L nasal cannula for many years, told me she had PFTs many many years ago I do not have those results. She is limited in activity due to chronic back pain and can only walk a few steps to transfer out of bed. Currently the patient is admitted with acute on chronic hypercarbic respiratory failure from her COPD. Admission blood gas on BiPAP was 7.32/ 89, 53 and 4 hours later on BiPAP 50% was 7.37/76/58. Her serum bicarbonate was greater than 40 on admission. The patient has chronic hypercarbic respiratory failure from her COPD and would benefit from noninvasive ventilation to prevent further exacerbations and hospitalizations. The patient was initially placed on BiPAP but she said this was uncomfortable of a for her and could not tolerate the pressures. She was switched to a noninvasive ventilator with the AVAPS mode and tolerated rate of 20, tidal volume 500, EPAP 5, minimal inspiratory pressure 6, maximal inspiratory pressure 25 and 60% FiO2. 03/02/24: Plan: I will continue to treat for COPD exacerbation. Patient has no wheezing and I will change her to prednisone 40 mg p.o. q.day. I will continue DuoNebs q.4 hours. I will continue azithromycin for tracheobronchitis, day 2. I will continue guaifenesin 1200 mg p.o. b.i.d.. Goal saturation 90-94%. Patient is currently on high-flow nasal cannula 35 L and 82%. Will wean as tolerated. Blood gas on the above-mentioned AVAPS settings 7.50/59/64. These settings provide adequate ventilation. I have initiated home noninvasive ventilation with a sports coordinator. Currently the patient gets her home oxygen to the [employer] will check overnight oximetry once her oxygenation has improved. 03/03/2024: Overall the patient states that she is breathing better. She has not been out of bed. She is afebrile. White blood cell count 12.3, creatinine 1.0, weight is 77.6, total diuresis since admission is -2.7 L. the patient wore the hospital noninvasive ventilator with the AVAPS mode and 60% oxygen overnight. When I entered the room she was on high-flow nasal cannula 50 L and 65% FiO2 with saturations 96%. I decreased her to 50% FiO2 and 50 L and her saturations were 93%. Plan: continue to treat for COPD exacerbation with prednisone 40 mg a day, day 4. Continue DuoNebs q.4 hours. Continue azithromycin day 3 or 5. Patient is on guaifenesin 1200 mg p.o. b.i.d.. Goal saturation 90-94%. meeting coordinator contacted the [place] [facility] system regarding noninvasive ventilation and per their protocol they give the patient a machine but have no in house continuity. We will check with via [facility] to see if they can support her system and set up a noninvasive ventilator at home with good follow-up. 03/04/2024: Patient stating she has a rough day today. She has increased cough and phlegm production with no wheezing. Currently she is on 8 L cannula with saturations 95% and I decreased her to 6 L nasal cannula. White blood cell count 11.9, creatinine 1.0. Plan: continue to treat for COPD exacerbation with prednisone 40 mg a day, day 5 and will DC today. I will change her DuoNebs q.4 hours to Anoro Ellipta 62.5-25 at 1 puff q.day. Continue azithromycin day 4 or 5. Patient is on guaifenesin 1200 mg p.o. b.i.d.. Goal saturation 90-94% and currently on 6 L nasal cannula. Later in the day I filled out noninvasive order form through via [employer] for [employer] with a rate of 20, tidal volume 500, EPAP minimum 5, EPAP maximum 15, pressure support minimum 6, pressure support maximum 25, inspiratory time 1.0, 7 L bleed in 03/05/24: patient states she is breathing better today.
--- NOTE | 2024-03-05 12:08 | PM.IMPN ---
Progress Note: A&P Assessment and Plan (1) Acute respiratory failure with hypoxia and hypercapnia: Code(s): J96.01 - Acute respiratory failure with hypoxia; J96.02 - Acute respiratory failure with hypercapnia Status: Acute Assessment and Plan: Patient required BiPAP on admission. She has chronic resp failure on home O2 at 4L from COPD CTA chest showing no PE but moderate pulmonary edema. Viral panel negative. ABG 7.32/89/53 12L Pulmonary consulted and appreciate their input. Started on bronchodilators and IV Solu-Medrol Azithromycin also started. Lasix IV started. Able to wean oxygen to 5L; not tolerating AVAPS Apnea link not accurate overnight. Wean O2 to baseline as tolerated (2) Chronic respiratory failure with hypoxia, on home O2 therapy: Code(s): J96.11 - Chronic respiratory failure with hypoxia; Z99.81 - Dependence on supplemental oxygen Status: Acute Assessment and Plan: As above (3) CHF (congestive heart failure): Code(s): I50.9 - Heart failure, unspecified Status: Acute Assessment and Plan: CT chest showing pulmonary edema. BNP 3980. Echo 6 months ago was normal by report. EKG showing nonspecific T wave changes Echo showing EF >70% and Grade I diastolic dysfunction. Started on IV Lasix. Home medications of atenolol, clonidine, lisinopril resumed Changed to oral Lasix now. Suspect acute on chronic diastolic CHF exacerbation Fluid balance -4L Cr up slightly to 1.1 and bicarb>40 CXR still showing mild pulmonary edema. But might be getting close to dry weight. Monitor UOP, electrolytes and renal fxn (4) Chronic obstructive pulmonary disease: Code(s): J44.9 - Chronic obstructive pulmonary disease, unspecified Status: Acute Assessment and Plan: As above (5) Dysphagia: Code(s): R13.10 - Dysphagia, unspecified Status: Acute Assessment and Plan: Concerns for aspiration on admission. Pureed diet until she could complete MBS. MBS completed on 03/04 showing momentary laryngeal penetration with prompt clearing per ST. Speech recommended regular Level 7 diet with thin liquids. Follow (6) Hypertension: Code(s): I10 - Essential (primary) hypertension Status: Acute Assessment and Plan: Patient's blood pressure was reviewed on 03/05/24 Blood pressure with wide fluctuations. Home medications of atenolol, clonidine, lisinopril resumed Will continue current medications except start to decrease clonidine since she gets this once daily so might be causing the BP spikes. (7) Macrocytic anemia: Code(s): D53.9 - Nutritional anemia, unspecified Status: Acute Assessment and Plan: Hemoglobin 9.2 on admission. states she normally runs low No overt bleeding Patient is on Plavix 75 mg daily which was continued Iron studies, B12 and folate normal Hgb low but stable in the 9 range. (8) Peripheral arterial disease: Code(s): I73.9 - Peripheral vascular disease, unspecified Status: Acute Assessment and Plan: Patient has a history of LE stents Continue Plavix. Add Lipitor (9) Chronic pain syndrome: Code(s): G89.4 - Chronic pain syndrome Status: Acute Assessment and Plan: Patient has a history of chronic pain from compression fracture. She has been on morphine 30 mg every 8 hours and Lyrica 100 mg b.i.d. since 2006 for a compression fracture. Morphine resumed. Plan DVT prophylaxis - Lovenox Code status - full Subjective Date/time seen: 03/05/24 12:08 Interval history: 79yo female with chronic resp failure on 4L, HTN and PAD here for shortness of breath. Assuming care. Chart reviewed. She wears 4L at home chronically. She is not active due to a thoracic burst fracture and is wheel-chair bound. She feels well and is requesting discharge. No CP or SOB. No cough. Eating okay. Exam Narrative: AF 96.6 119/46
--- NOTE | 2024-03-05 12:59 | PCRCNOTE ---
SPOKE TO KANDI, RESPIRATORY HOME WEEKEND CAREGIVER AT THE CO. SHE STATED THAT THE PATIENT WILL HAVE ACCESS TO A RT WITH THIS NEW HOME RESP. EQUIPMENT, AVAILABLE THRU [employer], FOR SET-UP AND FOLLOW UP CARE FOR THE PT IN THE HOME AFTER D/C. RT WILL FOLLOW UP AND ASSESS PT MONTHY. PT WILL BE GIVEN 2 HOME TRILOGY UNITS THRU THE CO, ONE FOR BACK-UP. CURRENT TRILOGY SETTINGS HAVE BEEN RELAYED VERBALLY WITH KANDI AND CONFIRMED. TRILOGY UNIT SETTINGS: 6L BLEED-IN, [employer] Vt 500, Pinsp MAX 25, Pinsp MIN 6, EPAP max 15, EPAP min 5, i-time 1.0, WITH AUTO RATE. KANDI ALSO AWARE PT HAS HIGHER o2 NEEDS AND WILL ENSURE o2 EQUIPMENT CONTAINS HIGH FLOW CONCENTRATOR. KANDI WILL REQUEST THAT HER PRIMARY DOCTOR ORDER A PULMONARY CONSULT TO FOLLOW PATIENT REGULARLY. KANDI STATED SHE WILL CALL ME BACK WITH UPDATE TO WHEN RT CAN COME HERE WITH TRILOGY UNIT FOR OVERNIGHT TRIAL PRIOR TO D/C HOME. WE ARE HOPING THIS WILL BE DONE THIS EVENING. DR WILSON HAS BEEN UPDATED AND WILL ORDER APNEA LINK AND ABG FOR AM TO ENSURE PT TOLERATED AND SETTINGS ARE ADEQUATE. KANDI AT [employer] # FAX TO CO # [phone]
[2024-03-05] MEDS: POTASSIUM CHLORIDE 20 MEQ ER TABLET PO (13:00)
[2024-03-05] MEDS: POTASSIUM CHLORIDE 20 MEQ ER TABLET 40 MEQ PO (13:10)
[2024-03-05] MEDS: CELECOXIB 100 MG CAPSULE PO (13:11)
[2024-03-05] MEDS: WATER FOR IRRIGATION, STERILE 1,000 ML BOTTLE 1000 ML (18:08)
[2024-03-06] VITALS (21 sets, daily range): BP systolic 118–186; BP diastolic 49–78; PULSE 51–94; RESP 14–20; TEMP 36.2–36.8; O2SAT 86–100
[2024-03-06] MEDS: MORPHINE SULFATE (*CRX) 30 MG TABCR PO ×2 (01:44→09:54)
--- NOTE | 2024-03-06 06:19 | PCRCNOTE ---
RT unable to obtain morning ABG prior to removing home PAP unit, another Rt attempted and was unsuccessful as well. RN aware.
[2024-03-06 06:47] LABS: Basophils Percent Auto 0.3 % (0.2-1.2); Eosinophils Absolute Auto 0.3 K/mm3 (0-0.3); Eosinophils Percent Auto 2.2 % (0-4.4); Hemoglobin 10.2 g/dL (12.0-15.0); Immature Granulocyte Absolute 0.38 K/mm3 (0.00-0.031); Immature Granulocyte Percent A 3.2 % (0-0.5); Lymphocytes Absolute Auto 3.47 K/mm3 (0.9-3.2); Lymphocytes Percent Auto 29.1 % (18.3-44.2); Mean Corpuscular HGB Conc 28.3 g/dl (32-36); Mean Corpuscular Hemoglobin 30.2 pg (26-34); Mean Corpuscular Volume 106.5 fl (80-100); Mean Platelet Volume 11.4 fl (7.4-10.4); Monocytes Absolute Auto 0.5 K/mm3 (0.1-0.6); Monocytes Percent Auto 4.4 % (2.6-8.5); Neutrophils Absolute Auto 7.2 K/mm3 (1.3-6.7); Neutrophils Percent Auto 60.8 % (45.5-73.1); Nucleated Red Blood Cells Perc 0.2 % (0.0-0.2); Platelet Count Result 237 k/mm3 (150-375); Red Blood Count 3.38 M/mm3 (4.2-5.4); Red Cell Distribution Width 15.2 % (11.5-14.5); White Blood Count 11.9 K/mm3 (4.5-10.0)
[2024-03-06 07:04] LABS: Alanine Aminotransferase 17 U/L (6-35); Albumin Level 3.9 g/dL (3.5-5.1); Alkaline Phosphatase 123 U/L (38-126); Aspartate Amino Transferase 22 U/L (14-36); Bilirubin,Total 0.4 mg/dL (0.2-1.3); Blood Urea Nitrogen 35 mg/dL (7-17); Carbon Dioxide > 40 mmol/L (22-30); Chloride 96 mmol/L (98-107); Estimated CRCL calculation 41 ml/min; Estimated Glomerular Filt Rate 54; Glucose 111 mg/dL (65-110); Magnesium 1.9 mg/dL (1.6-2.3); Potassium 3.9 mmol/L (3.4-5.0); Sodium 140 mmol/L (137-145)
[2024-03-06 07:24] LABS: Anisocytosis 1+; Macrocytosis 1+ (NORMAL); Platelet Estimate Adequate (Adequate); Schistocytes None Seen
[2024-03-06] MEDS: UMECLIDINIUM/VILANTEROL 62.5-25 MCG ELLIPTA 1 PUFF INHALATION (09:04)
[2024-03-06] MEDS: PREGABALIN (*CRX) 50 MG CAPSULE 100 MG PO (09:53)
[2024-03-06] MEDS: amLODIPine BESYLATE 2.5 MG TABLET PO (09:53)
[2024-03-06] MEDS: ATORVASTATIN 40 MG TABLET PO (09:53)
[2024-03-06] MEDS: FUROSEMIDE 40 MG TABLET PO (09:54)
[2024-03-06] MEDS: AZITHROMYCIN 250 MG TABLET 500 MG PO (09:54)
[2024-03-06] MEDS: CLOPIDOGREL BISULFATE 75 MG TABLET PO (09:54)
[2024-03-06] MEDS: lisinopriL 20 MG TABLET PO (09:54)
[2024-03-06] MEDS: PARoxetine 20 MG TABLET 40 MG PO (09:54)
[2024-03-06] MEDS: ENOXAPARIN 40 MG/0.4 ML SYRINGE SUB-Q (09:54)
[2024-03-06] MEDS: atenoloL 25 MG TABLET PO (09:54)
[2024-03-06] MEDS: CYANOCOBALAMIN 1,000 MCG TABLET 1000 MCG PO (09:54)
[2024-03-06] MEDS: guaiFENesin 12 HR 600 MG TABCR 1200 MG PO (09:55)
--- NOTE | 2024-03-06 10:40 | PM.PNPUL ---
Progress Note: A&P Assessment and Plan (1) Chronic obstructive pulmonary disease: Code(s): J44.9 - Chronic obstructive pulmonary disease, unspecified Status: Acute Assessment and Plan: Patient with a 60 pack year tobacco use, hypoxemic respiratory failure on 4 L nasal cannula for many years, told me she had PFTs many many years ago I do not have those results. She is limited in activity due to chronic back pain and can only walk a few steps to transfer out of bed. Currently the patient is admitted with acute on chronic hypercarbic respiratory failure from her COPD. Admission blood gas on BiPAP was 7.32/ 89, 53 and 4 hours later on BiPAP 50% was 7.37/76/58. Her serum bicarbonate was greater than 40 on admission. The patient has chronic hypercarbic respiratory failure from her COPD and would benefit from noninvasive ventilation to prevent further exacerbations and hospitalizations. The patient was initially placed on BiPAP but she said this was uncomfortable of a for her and could not tolerate the pressures. She was switched to a noninvasive ventilator with the AVAPS mode and tolerated rate of 20, tidal volume 500, EPAP 5, minimal inspiratory pressure 6, maximal inspiratory pressure 25 and 60% FiO2. 03/02/24: Plan: I will continue to treat for COPD exacerbation. Patient has no wheezing and I will change her to prednisone 40 mg p.o. q.day. I will continue DuoNebs q.4 hours. I will continue azithromycin for tracheobronchitis, day 2. I will continue guaifenesin 1200 mg p.o. b.i.d.. Goal saturation 90-94%. Patient is currently on high-flow nasal cannula 35 L and 82%. Will wean as tolerated. Blood gas on the above-mentioned AVAPS settings 7.50/59/64. These settings provide adequate ventilation. I have initiated home noninvasive ventilation with a office services coordinator. Currently the patient gets her home oxygen to the [facility]. will check overnight oximetry once her oxygenation has improved. 03/03/2024: Overall the patient states that she is breathing better. She has not been out of bed. She is afebrile. White blood cell count 12.3, creatinine 1.0, weight is 77.6, total diuresis since admission is -2.7 L. the patient wore the hospital noninvasive ventilator with the AVAPS mode and 60% oxygen overnight. When I entered the room she was on high-flow nasal cannula 50 L and 65% FiO2 with saturations 96%. I decreased her to 50% FiO2 and 50 L and her saturations were 93%. Plan: continue to treat for COPD exacerbation with prednisone 40 mg a day, day 4. Continue DuoNebs q.4 hours. Continue azithromycin day 3 or 5. Patient is on guaifenesin 1200 mg p.o. b.i.d.. Goal saturation 90-94%. education and outreach coordinator contacted the [place] [facility] regarding noninvasive ventilation and per their protocol they give the patient a machine but have no in house continuity. We will check with via [employer] to see if they can support her system and set up a noninvasive ventilator at home with good follow-up. 03/04/2024: Patient stating she has a rough day today. She has increased cough and phlegm production with no wheezing. Currently she is on 8 L cannula with saturations 95% and I decreased her to 6 L nasal cannula. White blood cell count 11.9, creatinine 1.0. Plan: continue to treat for COPD exacerbation with prednisone 40 mg a day, day 5 and will DC today. I will change her DuoNebs q.4 hours to Anoro Ellipta 62.5-25 at 1 puff q.day. Continue azithromycin day 4 or 5. Patient is on guaifenesin 1200 mg p.o. b.i.d.. Goal saturation 90-94% and currently on 6 L nasal cannula. Later in the day I filled out noninvasive order form through via [employer] for [facility] with a rate of 20, tidal volume 500, EPAP minimum 5, EPAP maximum 15, pressure support minimum 6, pressure support maximum 25, inspiratory time 1.0, 7 L bleed in 03/05/24: patient states she is breathing better today.
[2024-03-06 11:54] LABS: NT Pro B Type Natriuretic Pept 372 pg/mL (19.9-100)
--- NOTE | 2024-03-06 13:56 | HOMEO2EVAL ---
Evaluation was performed at [facility] Home Oxygen Evaluation RC: Home Oxygen (O2) Evaluation Start: 03/06/24 10:38 Freq: ONCE Status: Active Protocol: RPE Activity Type Activity Date Activity User E-sign Co-sign Detail Recorded Client Recorded Date Recorded By Document 03/06/24 13:30 CHANTELL [email or web address] 03/06/24 13:56 CHANTELL Document 03/06/24 13:31 CHANTELL [email or web address] 03/06/24 13:56 CHANTELL Document 03/06/24 13:32 CHANTELL [email or web address] 03/06/24 13:56 CHANTELL Document 03/06/24 13:33 CHANTELL [email or web address] 03/06/24 13:56 CHANTELL Document 03/06/24 13:35 CHANTELL [email or web address] 03/06/24 13:56 CHANTELL Document 03/06/24 13:45 CHANTELL [email or web address] 03/06/24 13:56 CHANTELL 03/06/24 03/06/24 03/06/24 13:30 13:31 13:32 Home O2 Evaluation [Oxygen] -Test Phase Resting Resting Resting -Oxygen Delivery Room Air Nasal Cannula Nasal Cannula -Oxygen Flow Rate (L/min) 2 3 [Pulse Oximetry] -Pulse Oximetry (90-100 %) 86 L 87 L 88 L [Pulse Rate] -Pulse Rate (60-100 beats/min) 80 [Comments] -Home Oxygen Evaluation Comments [Charges] -Evaluation Charges O2 Evaluation by Pulmonary 03/06/24 03/06/24 03/06/24 13:33 13:35 13:45 Home O2 Evaluation [Oxygen] -Test Phase Resting Exercise Resting -Oxygen Delivery Nasal Cannula Nasal Cannula Nasal Cannula -Oxygen Flow Rate (L/min) 4 4 4 [Pulse Oximetry] -Pulse Oximetry (90-100 %) 93 90 93 [Pulse Rate] -Pulse Rate (60-100 beats/min) 94 88 [Comments] -Home Oxygen Evaluation Comments Pt up to commode and back into bed. Requires 4 L home O2 resting and with exertion [Charges] -Evaluation Charges
--- NOTE | 2024-03-06 13:56 | PCRCNOTE ---
Home o2 eval done, pt requires 4L O2 rest and with exertion. [facility] I will fax this updated home O2 eval to Amelie at the OR
--- NOTE | 2024-03-06 14:24 | PM.DS ---
DS: Admitting Diagnosis Discharge Date 03/06/24 Admitting Diagnosis Shortness of breath DS: Discharge Diagnosis Discharge Diagnosis (1) Acute respiratory failure with hypoxia and hypercapnia: Code(s): J96.01 - Acute respiratory failure with hypoxia; J96.02 - Acute respiratory failure with hypercapnia Status: Acute (2) Chronic respiratory failure with hypoxia, on home O2 therapy: Code(s): J96.11 - Chronic respiratory failure with hypoxia; Z99.81 - Dependence on supplemental oxygen Status: Acute (3) CHF (congestive heart failure): Code(s): I50.9 - Heart failure, unspecified Status: Acute (4) Chronic obstructive pulmonary disease: Code(s): J44.9 - Chronic obstructive pulmonary disease, unspecified Status: Acute (5) Dysphagia: Code(s): R13.10 - Dysphagia, unspecified Status: Acute (6) Hypertension: Code(s): I10 - Essential (primary) hypertension Status: Acute (7) Macrocytic anemia: Code(s): D53.9 - Nutritional anemia, unspecified Status: Acute (8) Peripheral arterial disease: Code(s): I73.9 - Peripheral vascular disease, unspecified Status: Acute (9) Chronic pain syndrome: Code(s): G89.4 - Chronic pain syndrome Status: Acute DS: Summary Hospital Course Reason for hospitalization: 79yo female with chronic resp failure on 4L, HTN and PAD here for shortness of breath. Please see H&P for details Hospital Course: Patient presents with SOB requiring BiPAP on admission. She has chronic resp failure on home O2 at 4L from COPD. CTA chest showing no PE but moderate pulmonary edema. Viral panel negative. ABG 7.32/89/53 12L. Pulmonary consulted and appreciate their input. She was started on bronchodilators and IV Solu-Medrol. Azithromycin also started and she completed a course. Lasix IV started. Able to wean oxygen to 5L; she was not tolerating AVAPS well but did better with adjustment of settings. CT chest showing pulmonary edema. BNP 3980. Echo 6 months ago was normal by report. EKG showing nonspecific T wave changes. Echo showing EF >70% and Grade I diastolic dysfunction. She was started on IV Lasix. Home medications of atenolol, clonidine, lisinopril resumed. She had a negative fluid balance and was changed to oral Lasix. She actually is supposed to be on Lasix at home but has been noncompliant. Suspect acute on chronic diastolic CHF exacerbation. Creatinine remained stable on Lasix. Repeat CXR still showing mild pulmonary edema but felt getting close to dry weight. She had clinical improvement and was able to wean O2. There was concern for aspiration on admission. Pureed diet until she could complete MBS. MBS completed on 03/04 showing momentary laryngeal penetration with prompt clearing per ST. Speech recommended regular Level 7 diet with thin liquids. Patient's blood pressure had wide fluctuations. Home medications of atenolol, clonidine, lisinopril resumed. We started low dose Norvasc and weaned off clonidine since she gets this once daily so might be causing the BP spikes. BP was better controlled. Hemoglobin 9.2 on admission. states she normally runs low and no evidence of overt bleeding. Patient is on Plavix 75 mg daily which was continued. Iron studies, B12 and folate normal. Hgb low but stable in the 9-10 range. Patient has a history of PAD. We continued Plavix and added Lipitor. Patient has a history of chronic pain from compression fracture. She has been on morphine 30 mg every 8 hours and Lyrica 100 mg b.i.d. since 2006 for a compression fracture. Home medications resumed. We had AVAPS delivered here and patient had an Apnealink overnight showing hypoxia on 6L bleed in. Pulmonology recommended home but patient will need 8L bleed-in. Spoke with (who is a RT) by phone who assured me that he has the approrpiate equipment to have patient on 8L bleed-in with sleep. She overall did well and was able to be dsicharged on
== END 2024-03-06 16:32 | disposition home or self-care (01) | DRG 189 ==
LOC: ANHED 18:14 → ANHIMU 19:01
PROVIDERS: Internal Medicine Pulmonary Disease; Nurse Practitioner Acute Care; Physician Assistant; Admitting Provider Hospitalist; Emergency Provider Emergency Medicine; Visit Provider Internal Medicine
DX: J96.22 Acute and chronic respiratory failure with hypercapnia (principal); I50.33 Acute on chronic diastolic (congestive) heart failure; J81.1 Chronic pulmonary edema; J44.1 Chronic obstructive pulmonary disease with (acute) exacerbation; J96.21 Acute and chronic respiratory failure with hypoxia; F17.210 Nicotine dependence, cigarettes, uncomplicated; I11.0 Hypertensive heart disease with heart failure; I73.9 Peripheral vascular disease, unspecified; D53.9 Nutritional anemia, unspecified; G89.4 Chronic pain syndrome; R13.10 Dysphagia, unspecified; Z99.81 Dependence on supplemental oxygen; Z20.822 Contact with and (suspected) exposure to COVID-19
CPT/HCPCS: 36415; 36600; 70450; 71045; 71275; 80048; 80053; 82375; 82607; 82728; 82746; 82805; 82948; 83036; 83050; 83540; 83550; 83735; 83880; 84439; 84443; 84480; 85025; 85027; 87637; 92526; 92610; 92611; 93005; 93306; 94002; 94003; 94618; 94640; 94762; 96372; 96374; 97161; 97165; 99285; A9270; G0378; J0360; J0456; J1630; J1650; J1815; J1940; J2919; J7512; Q9967